=== PATIENT | male | born 1975 | race American Indian/Alaskan Native ===

== ENCOUNTER 2019-12-13 13:58 | Emergency (ER) | payer MEDICAID ==
--- NOTE | 2019-12-13 14:45 | Event Note ---
ED Screening Note Date of service: 12/13/19 Time: 14:38 ED Screening Note: 44 y o male presents with alcohol withdrawal states he usually drinks a bottle or 2 of wine daily states last drink was wednesday or wednesday cc of tremors This initial assessment/diagnostic orders/clinical plan/treatment(s) is/are subject to change based on patients health status, clinical progression and re- assessment by fellow clinical providers in the ED. Further treatment and workup at subsequent clinical providers discretion. Patient/guardian urged not to elope from the ED as their condition may be serious if not clinically assessed and managed. Initial orders include: labs uds main side eval
[2019-12-13 15:42] LABS: BUN/Creatinine Ratio 17; Blood Urea Nitrogen 15 mg/dL (9-20); Hemolysis Index 15
[2019-12-13 15:53] LABS: Hematocrit 51.8 % (35.5-45.6); Hemoglobin 17.4 gm/dl (11.8-15.2); Mean Corpuscular HGB Conc 34 % (32-34); Mean Corpuscular Volume 89 fl (84-94); Platelet Count 244 K/mm3 (140-440); Red Blood Count 5.84 M/mm3 (3.65-5.03); Red Cell Distribution Width 14.5 % (13.2-15.2)
[2019-12-13] MEDS ORDERED: LORazepam 2 MG/ML VIAL IV PRN ×2 (19:04)
[2019-12-13] MEDS ORDERED: chlordiazePOXIDE 25 MG CAP PO PRN ×2 (19:04)
[2019-12-13] MEDS ORDERED: SODIUM CHLORIDE 0.9% 1000 ML 1,000 ML IV ONE (19:05)
[2019-12-13] MEDS ORDERED: THIAMINE 100 MG, FOLIC ACID 1 MG, MULTIPLE VITAMIN INJ, ADULT 10 ML in SODIUM CHLORIDE ... IV ONE (19:30)
[2019-12-13 19:33] LABS: Amphetamine Screen,Urine PRESUMPTIVE NEGATIVE; Benzodiazepines Screen,Urine PRESUMPTIVE NEGATIVE; Cannabinoid Screen,Urine PRESUMPTIVE NEGATIVE; Cocaine Screen,Urine PRESUMPTIVE NEGATIVE; Methadone Screen,Urine PRESUMPTIVE NEGATIVE; Opiate Screen,Urine PRESUMPTIVE NEGATIVE
[2019-12-13 19:38] LABS: Bacteria,Urine 1+ /HPF (Negative); Bilirubin,Urine NEG (Negative); Blood,Urine SM (Negative); Color,Urine Amber (Yellow); Mucus,Urine 3+ /HPF; Urobilinogen,Urine < 2.0 mg/dL (<2.0)
--- NOTE | 2019-12-13 20:49 | Emergency Department Report ---
ED General Adult HPI - General Chief complaint: Alcohol Stated complaint: ETOH WITHDRAW Time Seen by Provider: 12/13/19 18:13 Source: patient Mode of arrival: Ambulatory Limitations: No Limitations - History of Present Illness Initial comments: Patient presents to the emergency department the chief complaint of alcohol withdrawal. Patient states he drinks approximately one and a half bottles of wine daily and has not had a drink since Wednesday. Patient states that he has tried to stop drinking before with success via this cold turkey method. Patient denies any auditory visual hallucinations. Patient also denies blacking out. -: Gradual Severity scale (0 -10): 0 Consistency: constant Improves with: none Worsens with: none Associated Symptoms: denies other symptoms Treatments Prior to Arrival: none - Related Data Previous Rx's Medication Instructions Recorded Last Taken Type Folic Acid 0.4 mg PO QDAY #30 tablet 10/17/18 Unknown Rx Multivitamin [Multiple Vitamins] 1 each PO DAILY #30 tablet 10/17/18 Unknown Rx Thiamine [Vitamin B-1] 100 mg PO QDAY #30 tablet 10/17/18 Unknown Rx LORazepam [Ativan] 1 mg PO TID PRN #12 tablet 12/13/19 Unknown Rx Allergies Allergy/AdvReac Type Severity Reaction Status Date / Time No Known Allergies Allergy Unverified 10/16/18 11:28 ED Review of Systems ROS: Stated complaint: ETOH WITHDRAW Other details as noted in HPI Comment: All other systems reviewed and negative Constitutional: denies: chills, fever Eyes: denies: eye pain, eye discharge, vision change ENT: denies: ear pain, throat pain Respiratory: denies: cough, shortness of breath, wheezing Cardiovascular: denies: chest pain, palpitations Endocrine: no symptoms reported Gastrointestinal: denies: abdominal pain, nausea, diarrhea Genitourinary: denies: urgency, dysuria Musculoskeletal: denies: back pain, joint swelling, arthralgia Skin: denies: rash, lesions Neurological: denies: headache, weakness, paresthesias Psychiatric: denies: anxiety, depression Hematological/Lymphatic: denies: easy bleeding, easy bruising ED Past Medical Hx - Past Medical History Previous Medical History?: Yes Hx Congestive Heart Failure: No Hx Diabetes: No Hx Psychiatric Treatment: Yes (Alcohol abuse) Hx Asthma: No Hx COPD: No - Surgical History Past Surgical History?: No - Social History Smoking Status: Current Every Day Smoker Substance Use Type: Alcohol - Medications Home Medications: Home Medications Medication Instructions Recorded Confirmed Last Taken Type Folic Acid 0.4 mg PO QDAY #30 tablet 10/17/18 Unknown Rx Multivitamin [Multiple Vitamins] 1 each PO DAILY #30 tablet 10/17/18 Unknown Rx Thiamine [Vitamin B-1] 100 mg PO QDAY #30 tablet 10/17/18 Unknown Rx LORazepam [Ativan] 1 mg PO TID PRN #12 tablet 12/13/19 Unknown Rx ED Physical Exam - General Limitations: No Limitations General appearance: alert, in no apparent distress - Head Head exam: Present: atraumatic, normocephalic - Eye Eye exam: Present: normal appearance, PERRL, EOMI - ENT ENT exam: Present: mucous membranes moist - Neck Neck exam: Present: normal inspection - Respiratory Respiratory exam: Present: normal lung sounds bilaterally. Absent: respiratory distress - Cardiovascular Cardiovascular Exam: Present: normal rhythm, tachycardia. Absent: systolic murmur, diastolic murmur, rubs, gallop - GI/Abdominal GI/Abdominal exam: Present: soft, normal bowel sounds. Absent: distended, ten derness - Rectal Rectal exam: Present: deferred - Extremities Exam Extremities exam: Present: normal inspection - Back Exam Back exam: Present: normal inspection - Neurological Exam Neurological exam: Present: alert, oriented X3, CN II-XII intact, other (Tremors). Absent: motor sensory deficit - Psychiatric Psychiatric exam: Present: normal affect, normal mood - Skin Skin exam: Present: warm, dry, intact, normal color. Absent: rash ED Course Vital Signs 12/13/19 12/13/19 12/13/19 14:01 14:47 18:37 Temperature 98.3 F 98.3 F Pulse Rate 66 73 Respiratory 18 18 Rate Blood Pressure 173/100 173/100 Blood Pressure [Right] O2 Sat by Pulse 97 98 97 Oximetry 12/13/19 12/13/19 12/13/19 18:45 19:19 19:20 Temperature Pulse Rate 128 H 128 H Respiratory 17 19 19 Rate Blood Pressure 162/96 Blood Pressure 156/91 [Right] O2 Sat by Pulse 94 96 96 Oximetry 12/13/19 12/13/19 20:13 22:07 Temperature Pulse Rate 119 H 115 H Respiratory 20 20 Rate Blood Pressure Blood Pressure 137/74 137/70 [Right] O2 Sat by Pulse 96 98 Oximetry ED Medical Decision Making - Lab Data Result diagrams: 12/13/19 15:11 12/13/19 15:11 Lab Results 12/13/19 12/13/19 12/13/19 Range/Units 15:11 15:11 15:11 WBC 7.8 (4.5-11.0) K/mm3 RBC 5.84 H (3.65-5.03) M/mm3 Hgb 17.4 H (11.8-15.2) gm/dl Hct 51.8 H (35.5-45.6) % MCV 89 (84-94) fl MCH 30 (28-32) pg MCHC 34 (32-34) % RDW 14.5 (13.2-15.2) % Plt Count 244 (140-440) K/mm3 Lymph % (Auto) 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 [place] % (Auto) [employer] 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 Eos % (Auto) [employer] W[employer] 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 Baso % (Auto) [employer] W[employer] 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 Lymph # [employer] W[employer] 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 [place] # [employer] 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 Eos # Cl[employer] W[employer] 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 Baso # [employer] W[employer] 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 Seg Neutrophils % [employer] W[employer] 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 Seg Neutrophils # Cloth W[employer] 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 Sodium 133 L (137-145) mmol/L Potassium 3.9 (3.6-5.0) mmol/L Chloride 89.2 L (98-107) mmol/L Carbon Dioxide 21 L (22-30) mmol/L Anion Gap 27 mmol/L BUN 15 (9-20) mg/dL Creatinine 0.9 (0.8-1.5) mg/dL Estimated GFR > 60 ml/min BUN/Creatinine Ratio 17 % Glucose 103 H (75-100) mg/dL Calcium 9.0 (8.4-10.2) mg/dL Urine Color (Yellow) Urine Turbidity (Clear) Urine pH (5.0-7.0) Ur Specific [place] (1.003-1.030) Urine Protein (Negative) mg/dL Urine Glucose (UA) (Negative) mg/dL Urine Ketones (Negative) mg/dL Urine Blood (Negative) Urine Nitrite (Negative) Urine Bilirubin (Negative) Urine Urobilinogen (<2.0) mg/dL Ur Leukocyte Esterase (Negative) Urine WBC (Auto) (0.0-6.0) /HPF Urine RBC (Auto) (0.0-6.0) /HPF U Epithel Cells (Auto) (0-13.0) /HPF Urine Bacteria (Auto) (Negative) /HPF Urine Mucus /HPF Urine Opiates Screen Urine Methadone Screen Ur Barbiturates Screen Ur Phencyclidine Scrn Ur Amphetamines Screen U Benzodiazepines Scrn Urine Cocaine Screen U Marijuana (THC) Screen Drugs of Abuse Note Plasma/Serum Alcohol < 0.01 (0-0.07) % 12/13/19 12/13/19 Range/Units 19:00 19:00 WBC (4.5-11.0) K/mm3 RBC (3.65-5.03) M/mm3 Hgb (11.8-15.2) gm/dl Hct (35.5-45.6) % MCV (84-94) fl MCH (28-32) pg MCHC (32-34) % RDW (13.2-15.2) % Plt Count (140-440) K/mm3 Lymph % (Auto) [place] % (Auto) Eos % (Auto) Baso % (Auto) Lymph # [place] # Eos # Baso # Seg Neutrophils % Seg Neutrophils # Sodium (137-145) mmol/L Potassium (3.6-5.0) mmol/L Chloride (98-107) mmol/L Carbon Dioxide (22-30) mmol/L Anion Gap mmol/L BUN (9-20) mg/dL Creatinine (0.8-1.5) mg/dL Estimated GFR ml/min BUN/Creatinine Ratio % Glucose (75-100) mg/dL Calcium (8.4-10.2) mg/dL Urine Color [place] (Yellow) Urine Turbidity Clear (Clear) Urine pH 5.0 (5.0-7.0) Ur Specific [place] 1.030 (1.003-1.030) Urine Protein 30 mg/dl (Negative) mg/dL Urine Glucose (UA) Neg (Negative) mg/dL Urine Ketones 20 (Negative) mg/dL Urine Blood Sm (Negative) Urine Nitrite Neg (Negative) Urine Bilirubin Neg (Negative) Urine Urobilinogen < 2.0 (<2.0) mg/dL Ur Leukocyte Esterase Neg (Negative) Urine WBC (Auto) 2.0 (0.0-6.0) /HPF Urine RBC (Auto) 4.0 (0.0-6.0) /HPF U Epithel Cells (Auto) < 1.0 (0-13.0) /HPF Urine Bacteria (Auto) 1+ (Negative) /HPF Urine Mucus 3+ /HPF Urine Opiates Screen Presumptive negative Urine Methadone Screen Presumptive negative Ur Barbiturates Screen Presumptive negative Ur Phencyclidine Scrn Presumptive negative Ur Amphetamines Screen Presumptive negative U Benzodiazepines Scrn Presumptive negative Urine Cocaine Screen Presumptive negative U Marijuana (THC) Screen Presumptive negative Drugs of Abuse Note Disclamer Plasma/Serum Alcohol (0-0.07) % - Medical Decision Making The patient's initial CIWA was 13 Reexamination of the patient at 10:15 PM CIWA score was a 4 Discussed in detail with the patient that he should stay for further treatment evaluation for alcohol withdrawal and the patient states he is concerned about losing his job and politely declines being admitted. I did go over the risk factors with the patient which included certainly for the lack of inhibition of the NARA receptors but the patient states that he still would like to go home. Further discussion was done about the risk factors leaving AGAINST MEDICAL ADVICE which includes worsening of his illness, , lifelong injuries or illness. Patient states that he understands all this but still wants to go home. Critical care attestation.: If time is entered above; I have spent that time in minutes in the direct care of this critically ill patient, excluding procedure time. ED Disposition Clinical Impression: Alcohol withdrawal Disposition: DC-07 LEFT AGAINST MED ADVICE Is pt being admited?: No Does the pt Need Aspirin: No Condition: Stable Instructions: Abuse of Alcohol (ED) Additional Instructions: return if worse Prescriptions: LORazepam [Ativan] 1 mg PO TID PRN #12 tablet PRN Reason: Alcohol Withdrawal Referrals: MONICA GUERRERO MD [Primary Care Provider] - 3-5 Days Time of Disposition: 22:28
[2019-12-13 22:08] VITALS: BP 137/70
== END 2019-12-13 22:39 | disposition left against medical advice (07) ==
LOC: ED 13:58
DX: F10.239 Alcohol dependence with withdrawal, unspecified (principal); F17.200 Nicotine dependence, unspecified, uncomplicated; Z79.899 Other long term (current) drug therapy
CPT/HCPCS: 36415; 80048; 80307; 81001; 85025; 96365; 96366; 99284; J3411; J7030; 80320; G0480

== ENCOUNTER 2020-04-20 10:07 | Emergency (ER) | payer MEDICAID ==
[2020-04-20 10:50] LABS: Basophils # (Auto) 0.1 K/mm3 (0.0-0.1); Eosinophils % (Auto) 0.3 % (0.0-4.3); Hematocrit 55.6 % (35.5-45.6); Hemoglobin 18.9 gm/dl (11.8-15.2); Lymphocytes % (Auto) 18.5 % (13.4-35.0); Mean Corpuscular HGB Conc 34 % (32-34); Mean Corpuscular Volume 86 fl (84-94); Monocytes # (Auto) 0.5 K/mm3 (0.0-0.8); Monocytes % (Auto) 8.5 % (0.0-7.3); Platelet Count 398 K/mm3 (140-440); Red Blood Count 6.47 M/mm3 (3.65-5.03); Red Cell Distribution Width 14.5 % (13.2-15.2)
[2020-04-20 11:07] LABS: BUN/Creatinine Ratio 20; Blood Urea Nitrogen 16 mg/dL (9-20); Calcium 7.9 mg/dL (8.4-10.2); Hemolysis Index 25
[2020-04-20 12:03] LABS: Bilirubin,Urine NEG (Negative); Blood,Urine NEG (Negative); Color,Urine Yellow (Yellow); Mucus,Urine FEW /HPF; Protein,Urine <15 mg/dL mg/dL (Negative); WBC,Urine < 1.0 /HPF (0.0-6.0)
[2020-04-20 12:15] LABS: Amphetamine Screen,Urine Negative; Benzodiazepines Screen,Urine Negative; Cannabinoid Screen,Urine Negative; Cocaine Screen,Urine Negative; Methadone Screen,Urine Negative; Opiate Screen,Urine Negative
[2020-04-20] MEDS ORDERED: LORazepam 1 MG TAB PO ONE (13:16)
--- NOTE | 2020-04-20 13:19 | Emergency Department Report ---
ED General Adult HPI - General Chief complaint: Medical Clearance Stated complaint: MEDICAL CLERARNCE/ETOH PUI?: No Time Seen by Provider: 04/20/20 13:13 Source: patient Mode of arrival: Ambulatory Limitations: No Limitations - History of Present Illness Initial comments: Patient is a 44-year-old F Brazilian male with past medical history of heavy alcohol abuse who is presenting with need for medical clearance so he can go to [facility] for alcohol detox. Patient states he drinks daily and is having issues with his life secondary to alcohol. He denies having any history of alcohol withdrawal seizures but does states he feels somewhat shaky. He denies any hallucinations at this time. Patient's last drink was yesterday. He states he has no nausea vomiting but just feels anxious. - Related Data Previous Rx's Medication Instructions Recorded Last Taken Type Folic Acid 0.4 mg PO QDAY #30 tablet 10/17/18 Unknown Rx Multivitamin [Multiple Vitamins] 1 each PO DAILY #30 tablet 10/17/18 Unknown Rx Thiamine [Vitamin B-1] 100 mg PO QDAY #30 tablet 10/17/18 Unknown Rx LORazepam [Ativan] 1 mg PO TID PRN #12 tablet 12/13/19 Unknown Rx Allergies Allergy/AdvReac Type Severity Reaction Status Date / Time No Known Allergies Allergy Unverified 10/16/18 11:28 ED Review of Systems ROS: Stated complaint: MEDICAL CLERARNCE/ETOH Other details as noted in HPI Comment: All other systems reviewed and negative ED Past Medical Hx - Past Medical History Previous Medical History?: Yes Hx Congestive Heart Failure: No Hx Diabetes: No Hx Psychiatric Treatment: Yes (Alcohol abuse) Hx Asthma: No Hx COPD: No - Social History Smoking Status: Never Smoker Substance Use Type: Alcohol - Medications Home Medications: Home Medications Medication Instructions Recorded Confirmed Last Taken Type Folic Acid 0.4 mg PO QDAY #30 tablet 10/17/18 Unknown Rx Multivitamin [Multiple Vitamins] 1 each PO DAILY #30 tablet 10/17/18 Unknown Rx Thiamine [Vitamin B-1] 100 mg PO QDAY #30 tablet 10/17/18 Unknown Rx LORazepam [Ativan] 1 mg PO TID PRN #12 tablet 12/13/19 Unknown Rx ED Physical Exam - General Limitations: No Limitations General appearance: alert, in no apparent distress - Head Head exam: Present: atraumatic, normocephalic - Eye Eye exam: Present: normal appearance - ENT ENT exam: Present: mucous membranes moist - Neck Neck exam: Present: normal inspection - Respiratory Respiratory exam: Present: normal lung sounds bilaterally. Absent: respiratory distress, wheezes, rales, rhonchi - Cardiovascular Cardiovascular Exam: Present: normal rhythm, tachycardia (112 on exam), normal heart sounds. Absent: systolic murmur, diastolic murmur, rubs, gallop - GI/Abdominal GI/Abdominal exam: Present: soft, normal bowel sounds. Absent: distended, tenderness, guarding, rebound - Rectal Rectal exam: Present: deferred - Extremities Exam Extremities exam: Present: normal inspection - Back Exam Back exam: Present: normal inspection - Neurological Exam Neurological exam: Present: alert, oriented X3 - Psychiatric Psychiatric exam: Present: normal affect, normal mood - Skin Skin exam: Present: warm, dry, intact, normal color. Absent: rash ED Course Vital Signs 04/20/20 10:15 Temperature 97.5 F L Pulse Rate 132 H Respiratory 20 Rate Blood Pressure 154/104 O2 Sat by Pulse 95 Oximetry ED Medical Decision Making - Lab Data Result diagrams: 04/20/20 10:26 04/20/20 10:26 Lab Results 04/20/20 04/20/20 04/20/20 Range/Units 10:26 10:26 10:26 WBC (4.5-11.0) K/mm3 RBC (3.65-5.03) M/mm3 Hgb (11.8-15.2) gm/dl Hct (35.5-45.6) % MCV (84-94) fl MCH (28-32) pg MCHC (32-34) % RDW (13.2-15.2) % Plt Count (140-440) K/mm3 Lymph % (Auto) (13.4-35.0) % [place] % (Auto) (0.0-7.3) % Eos % (Auto) (0.0-4.3) % Baso % (Auto) (0.0-1.8) % Lymph # (1.2-5.4) K/mm3 [place] # (0.0-0.8) K/mm3 Eos # (0.0-0.4) K/mm3 Baso # (0.0-0.1) K/mm3 Seg Neutrophils % (40.0-70.0) % Seg Neutrophils # (1.8-7.7) K/mm3 Sodium 135 L (137-145) mmol/L Potassium 3.8 (3.6-5.0) mmol/L Chloride 92.0 L (98-107) mmol/L Carbon Dioxide 22 (22-30) mmol/L Anion Gap 25 mmol/L BUN 16 (9-20) mg/dL Creatinine 0.8 (0.8-1.5) mg/dL Estimated GFR > 60 ml/min BUN/Creatinine Ratio 20 % Glucose 112 H (75-100) mg/dL Calcium 7.9 L (8.4-10.2) mg/dL Urine Color (Yellow) Urine Turbidity (Clear) Urine pH (5.0-7.0) Ur Specific [place] (1.003-1.030) Urine Protein (Negative) mg/dL Urine Glucose (UA) (Negative) mg/dL Urine Ketones (Negative) mg/dL Urine Blood (Negative) Urine Nitrite (Negative) Urine Bilirubin (Negative) Urine Urobilinogen (<2.0) mg/dL Ur Leukocyte Esterase (Negative) Urine WBC (Auto) (0.0-6.0) /HPF Urine RBC (Auto) (0.0-6.0) /HPF Urine Mucus /HPF Salicylates 1.1 L (2.8-20.0) mg/dL Urine Opiates Screen Urine Methadone Screen Acetaminophen < 5.0 L (10.0-30.0) ug/mL Ur Barbiturates Screen Ur Phencyclidine Scrn Ur Amphetamines Screen U Benzodiazepines Scrn Urine Cocaine Screen U Marijuana (THC) Screen Drugs of Abuse Note Plasma/Serum Alcohol (0-0.07) % 04/20/20 04/20/20 04/20/20 Range/Units 10:26 10:26 Unknown WBC 5.6 (4.5-11.0) K/mm3 RBC 6.47 H (3.65-5.03) M/mm3 Hgb 18.9 H (11.8-15.2) gm/dl Hct 55.6 H (35.5-45.6) % MCV 86 (84-94) fl MCH 29 (28-32) pg MCHC 34 (32-34) % RDW 14.5 (13.2-15.2) % Plt Count 398 (140-440) K/mm3 Lymph % (Auto) 18.5 (13.4-35.0) % [place] % (Auto) 8.5 H (0.0-7.3) % Eos % (Auto) 0.3 (0.0-4.3) % Baso % (Auto) 1.0 (0.0-1.8) % Lymph # 1.0 L (1.2-5.4) K/mm3 [place] # 0.5 (0.0-0.8) K/mm3 Eos # 0.0 (0.0-0.4) K/mm3 Baso # 0.1 (0.0-0.1) K/mm3 Seg Neutrophils % 71.7 H (40.0-70.0) % Seg Neutrophils # 4.0 (1.8-7.7) K/mm3 Sodium (137-145) mmol/L Potassium (3.6-5.0) mmol/L Chloride (98-107) mmol/L Carbon Dioxide (22-30) mmol/L Anion Gap mmol/L BUN (9-20) mg/dL Creatinine (0.8-1.5) mg/dL Estimated GFR ml/min BUN/Creatinine Ratio % Glucose (75-100) mg/dL Calcium (8.4-10.2) mg/dL Urine Color Yellow (Yellow) Urine Turbidity Clear (Clear) Urine pH 6.0 (5.0-7.0) Ur Specific [place] 1.021 (1.003-1.030) Urine Protein <15 mg/dl (Negative) mg/dL Urine Glucose (UA) Neg (Negative) mg/dL Urine Ketones Neg (Negative) mg/dL Urine Blood Neg (Negative) Urine Nitrite Neg (Negative) Urine Bilirubin Neg (Negative) Urine Urobilinogen 4.0 (<2.0) mg/dL Ur Leukocyte Esterase Neg (Negative) Urine WBC (Auto) < 1.0 (0.0-6.0) /HPF Urine RBC (Auto) 2.0 (0.0-6.0) /HPF Urine Mucus Few /HPF Salicylates (2.8-20.0) mg/dL Urine Opiates Screen Urine Methadone Screen Acetaminophen (10.0-30.0) ug/mL Ur Barbiturates Screen Ur Phencyclidine Scrn Ur Amphetamines Screen U Benzodiazepines Scrn Urine Cocaine Screen U Marijuana (THC) Screen Drugs of Abuse Note Plasma/Serum Alcohol 0.15 H (0-0.07) % 04/20/20 Range/Units Unknown WBC (4.5-11.0) K/mm3 RBC (3.65-5.03) M/mm3 Hgb (11.8-15.2) gm/dl Hct (35.5-45.6) % MCV (84-94) fl MCH (28-32) pg MCHC (32-34) % RDW (13.2-15.2) % Plt Count (140-440) K/mm3 Lymph % (Auto) (13.4-35.0) % [place] % (Auto) (0.0-7.3) % Eos % (Auto) (0.0-4.3) % Baso % (Auto) (0.0-1.8) % Lymph # (1.2-5.4) K/mm3 [place] # (0.0-0.8) K/mm3 Eos # (0.0-0.4) K/mm3 Baso # (0.0-0.1) K/mm3 Seg Neutrophils % (40.0-70.0) % Seg Neutrophils # (1.8-7.7) K/mm3 Sodium (137-145) mmol/L Potassium (3.6-5.0) mmol/L Chloride (98-107) mmol/L Carbon Dioxide (22-30) mmol/L Anion Gap mmol/L BUN (9-20) mg/dL Creatinine (0.8-1.5) mg/dL Estimated GFR ml/min BUN/Creatinine Ratio % Glucose (75-100) mg/dL Calcium (8.4-10.2) mg/dL Urine Color (Yellow) Urine Turbidity (Clear) Urine pH (5.0-7.0) Ur Specific [place] (1.003-1.030) Urine Protein (Negative) mg/dL Urine Glucose (UA) (Negative) mg/dL Urine Ketones (Negative) mg/dL Urine Blood (Negative) Urine Nitrite (Negative) Urine Bilirubin (Negative) Urine Urobilinogen (<2.0) mg/dL Ur Leukocyte Esterase (Negative) Urine WBC (Auto) (0.0-6.0) /HPF Urine RBC (Auto) (0.0-6.0) /HPF Urine Mucus /HPF Salicylates (2.8-20.0) mg/dL Urine Opiates Screen Negative Urine Methadone Screen Negative Acetaminophen (10.0-30.0) ug/mL Ur Barbiturates Screen Negative Ur Phencyclidine Scrn Negative Ur Amphetamines Screen Negative U Benzodiazepines Scrn Negative Urine Cocaine Screen Negative U Marijuana (THC) Screen Negative Drugs of Abuse Note Disclamer Plasma/Serum Alcohol (0-0.07) % - Medical Decision Making Patient is medically cleared for alcohol detox at this time. Critical care attestation.: If time is entered above; I have spent that time in minutes in the direct care of this critically ill patient, excluding procedure time. ED Disposition Clinical Impression: Alcohol abuse, Medical clearance for psychiatric admission Disposition: DC/TX-65 PSY HOSP/PSY UNIT Is pt being admited?: No Does the pt Need Aspirin: No Condition: Stable Additional Instructions: patient is medically cleared Time of Disposition: 13:19
[2020-04-20 14:07] VITALS: BP 130/89
== END 2020-04-20 15:00 ==
LOC: ED 10:07
DX: F10.10 Alcohol abuse, uncomplicated (principal); Z04.6 Encounter for general psychiatric examination, requested by authority; Z79.899 Other long term (current) drug therapy
CPT/HCPCS: 36415; 80048; 80307; 80320; 81001; 85025; 99283; G0480

== ENCOUNTER 2022-02-22 16:38 | Inpatient (IN) | payer MEDICAID, OTHER ==
[2022-02-22] MEDS ORDERED: ASPIRIN 81 MG TAB CHEW ONE (17:10)
[2022-02-22] MEDS ORDERED: HEPARIN 5,000 UNIT/1 ML VIAL ONE (17:10)
[2022-02-22] MEDS ORDERED: ACETAMINOPHEN 325 MG TAB PO PRN (17:11)
[2022-02-22] MEDS ORDERED: ALBUTEROL 2.5 MG/3 ML NEBU IH PRN (17:11)
[2022-02-22] MEDS ORDERED: MORPHINE 4 MG/1 ML INJ IV PRN (17:11)
--- NOTE | 2022-02-22 17:14 | History and Physical Report ---
History of Present Illness Chief complaint: My chest hurts History of present illness: 46 YO Male with Obesity, ETOH Dependence, GERD, ONESIMO presents to ED for evaluation. Patient reports "I am having chest pain". Patient states that he has experienced chest pain episodes over the past 1 week with persistent and worsening symptoms over the past 1 day. Patient states that his pain is currently 8/10, constant, substernal, sharp in nature, worsened with exertion, relieved with rest, associated with diaphoresis, associated with nausea. Patient transported to [facility] via private vehicle for further care and evaluation of the aforementioned symptoms. The patient was seen and evaluated in the emergency department. All lab and imaging studies reviewed. EKG and lab findings consistent with ST elevation [place]. Patient treated with therapeutic anticoagulation and taken urgently to the Permastone Applicator for surgical intervention. Cardiology team consulted in ED. Patient denies fever, chills, palpitation, productive cough, skin rash, recent contact, unilateral leg swelling, calf pain, individual/family history of DVT/PE/bleeding/blood clotting disorders, or known exposure to COVID-19. Prior ad Past History Past Medical History: GERD, other (See HPI) Past Surgical History: No surgical history, Other (Reviewed) Social history: , lives with family Family history: diabetes, hypertension Medications and Allergies Allergies Allergy/AdvReac Type Severity Reaction Status Date / Time No Known Allergies Allergy Verified 02/22/22 16:49 Home Medications Medication Instructions Recorded Confirmed Last Taken Type Folic Acid 0.4 mg PO QDAY #30 tablet 10/17/18 Unknown Rx Multivitamin [Multiple Vitamins] 1 each PO DAILY #30 tablet 10/17/18 Unknown Rx Thiamine [Vitamin B-1] 100 mg PO QDAY #30 tablet 10/17/18 Unknown Rx LORazepam [Ativan] 1 mg PO TID PRN #12 tablet 12/13/19 Unknown Rx Review of Systems Constitutional: no weight loss, no weight gain, no fever, no chills Ears, nose, mouth and throat: no ear pain, no tinnitis, no nasal congestion, no nasal discharge Cardiovascular: chest pain, shortness of breath Respiratory: no cough, no excessive sputum, no hemoptysis, no shortness of breath Gastrointestinal: nausea, no abdominal pain, no vomiting, no constipation, no change in bowel habits Genitourinary Male: no hematuria, no flank pain, no discharge, no urinary frequency, no urinary hesitancy Rectal: no pain, no incontinence, no bleeding Musculoskeletal: no neck stiffness, no neck pain, no shooting arm pain, no arm numbness/tingling Integumentary: no rash, no pruritis, no redness, no sores Neurological: no head injury, no transient paralysis, no paralysis, no weakness, no numbness, no syncope Psychiatric: anxiety, no memory loss, no sleep disturbances, no hypersomnia, no change in appetite, no change in libido Endocrine: no cold intolerance, no polyphagia, no excessive thirst, no polyuria, no excessive sweating Hematologic/Lymphatic: no easy bruising, no easy bleeding, no lymphedema Allergic/Immunologic: no urticaria, no allergic rhinitis, no persistent infections Exam - Constitutional Vitals: Temp Pulse Resp BP Pulse Ox 98.9 F 88 18 155/95 98 02/22/22 16:44 02/22/22 16:44 02/22/22 16:44 02/22/22 16:44 02/22/22 16:44 General appearance: Present: mild distress, obese - EENT Eyes: Present: PERRL ENT: hearing intact, clear oral mucosa - Neck Neck: Present: supple, normal ROM - Respiratory Respiratory effort: normal Respiratory: bilateral: CTA - Cardiovascular Heart Sounds: Present: S1 & S2. Absent: rub, click - Extremities Extremities: pulses symmetrical, No edema Peripheral Pulses: within normal limits - Abdominal General gastrointestinal: Present: soft, non-tender, non-distended, normal bowel sounds Male genitourinary: Present: normal - Integumentary Integumentary: Present: clear, warm, dry - Musculoskeletal Musculoskeletal: gait normal, strength equal bilaterally - Psychiatric Psychiatric: appropriate mood/affect, intact judgment & insight - Neurologic Neurologic: CNII-XII intact, moves all extremities Assessment and Plan - Patient Problems (1) STEMI (ST elevation myocardial infarction) Current Visit: Yes Status: Acute Plan to address problem: ACS protocol: Serial cardiac enzymes, EKG, telemetry monitoring, therapeutic anticoagulation administered in the emergency department. Patient taken urgently to Permastone Applicator, morphine, supplemental oxygen, nitro, aspirin, supportive care. The high probability of a clinically significant, sudden or life threatening deterioration of the [cardiac, pulmonary, neuro,] system(s) required my full and direct attention, intervention and personal management. The aggregate critical care time was [65] minutes. This time is in addition to time spent performing reported procedures but includes the following: [x] Data Review and interpretation [x] Patient assessment and monitoring of vital signs [x] Documentation [x] Medication orders and management (2) Obesity hypoventilation syndrome Current Visit: Yes Status: Acute Plan to address problem: Balanced diet, increase physical activity at discharge, outpatient pulmonary follow-up for sleep study. (3) Alcohol dependence Current Visit: Yes Status: Acute Qualifiers: Substance use status: uncomplicated Qualified Code(s): F10.20 - Alcohol dependence, uncomplicated Plan to address problem: Thiamine, folic acid, multivitamin daily, [place] protocol. (4) Diastolic CHF Current Visit: Yes Status: Acute Qualifiers: Heart failure chronicity: acute Qualified Code(s): I50.31 - Acute diastolic (congestive) heart failure Plan to address problem: Strict I's/O, monitor urine output every shift, daily weight, afterload reduction, blood pressure control, monitor fluid balance, further care and evaluation as per cardiology team. (5) DVT prophylaxis Current Visit: Yes Status: Acute Plan to address problem: SCD to bilateral lower extremities while in bed, continue therapeutic anticoagulation. (6) Advance care planning Current Visit: Yes Status: Acute Plan to address problem: Disease education data, care plan discussed, diagnoses discussed, prognosis discussed, patient is full code. Patient knowledges understanding and agreement with care plan, +30 minutes. (7) Preventative health care Current Visit: Yes Status: Acute Plan to address problem: Patient counseled regarding balanced diet, increase physical activity at discharge, weight reduction, outpatient follow-up with primary care physician for both age and risk factor appropriate screening test. +15 minutes.
[2022-02-22] MEDS ORDERED: SODIUM CHLORIDE 0.9% 1000 ML 1,000 ML ONE (17:15)
[2022-02-22] MEDS ORDERED: ONDANSETRON 4 MG/2 ML INJ ONE (17:15)
[2022-02-22] MEDS ORDERED: HEPARIN 10,000 UNITS/10 ML VIAL IV PRN (17:27)
[2022-02-22] MEDS ORDERED: ONDANSETRON 4 MG/2 ML INJ IV ONE (17:27)
[2022-02-22] MEDS ORDERED: ASPIRIN 81 MG TAB CHEW PO ONE (17:27)
[2022-02-22] MEDS ORDERED: MORPHINE 4 MG/1 ML INJ IV ONE (17:28)
--- NOTE | 2022-02-22 17:33 | Emergency Department Report ---
ED General Adult HPI - General Chief complaint: Chest Pain Stated complaint: CHEST PAIN Time Seen by Provider: 02/22/22 17:26 Source: patient Mode of arrival: Ambulatory Limitations: No Limitations - History of Present Illness Initial comments: Pt reports intermittent chest pain x1 wk with worsening yesterday. pt describes pain as substernal sharp pain. Pt reports he gets diaphoretic during his episodes with mild nausea. Pt denies prior cardiac hx. 46 years old recovering alcoholic with chest pain for a week , got worse since last night centralk going to his right arm, diaphoresis and nausea Severity scale (0 -10): 8 - Related Data Previous Rx's Medication Instructions Recorded Last Taken Type Folic Acid 0.4 mg PO QDAY #30 tablet 10/17/18 Unknown Rx Multivitamin [Multiple Vitamins] 1 each PO DAILY #30 tablet 10/17/18 Unknown Rx Thiamine [Vitamin B-1] 100 mg PO QDAY #30 tablet 10/17/18 Unknown Rx LORazepam [Ativan] 1 mg PO TID PRN #12 tablet 12/13/19 Unknown Rx Allergies Allergy/AdvReac Type Severity Reaction Status Date / Time No Known Allergies Allergy Verified 02/22/22 16:49 ED Review of Systems ROS: Stated complaint: CHEST PAIN Other details as noted in HPI Constitutional: denies: chills, fever Eyes: denies: eye pain, eye discharge, vision change ENT: denies: ear pain, throat pain Respiratory: denies: cough, shortness of breath, wheezing Cardiovascular: denies: chest pain, palpitations Endocrine: no symptoms reported Gastrointestinal: denies: abdominal pain, nausea, diarrhea Genitourinary: denies: urgency, dysuria Musculoskeletal: denies: back pain, joint swelling, arthralgia Skin: denies: rash, lesions Neurological: denies: headache, weakness, paresthesias Psychiatric: denies: anxiety, depression Hematological/Lymphatic: denies: easy bleeding, easy bruising ED Past Medical Hx - Past Medical History Hx Congestive Heart Failure: No Hx Diabetes: No Hx Psychiatric Treatment: Yes (Alcohol abuse) Hx Asthma: No Hx COPD: No - Surgical History Past Surgical History?: No - Social History Smoking Status: Never Smoker Substance Use Type: None - Medications Home Medications: Home Medications Medication Instructions Recorded Confirmed Last Taken Type Folic Acid 0.4 mg PO QDAY #30 tablet 10/17/18 Unknown Rx Multivitamin [Multiple Vitamins] 1 each PO DAILY #30 tablet 10/17/18 Unknown Rx Thiamine [Vitamin B-1] 100 mg PO QDAY #30 tablet 10/17/18 Unknown Rx LORazepam [Ativan] 1 mg PO TID PRN #12 tablet 12/13/19 Unknown Rx ED Physical Exam - General Limitations: No Limitations General appearance: alert, in distress - Head Head exam: Present: atraumatic, normocephalic - Eye Eye exam: Present: normal appearance - ENT ENT exam: Present: mucous membranes moist - Neck Neck exam: Present: normal inspection - Respiratory Respiratory exam: Present: normal lung sounds bilaterally. Absent: respiratory distress - Cardiovascular Cardiovascular Exam: Present: regular rate, normal rhythm. Absent: systolic murmur, diastolic murmur, rubs, gallop - GI/Abdominal GI/Abdominal exam: Present: soft, normal bowel sounds - Rectal Rectal exam: Present: deferred - Extremities Exam Extremities exam: Present: normal inspection - Back Exam Back exam: Present: normal inspection - Neurological Exam Neurological exam: Present: alert, oriented X3 - Psychiatric Psychiatric exam: Present: normal affect, normal mood - Skin Skin exam: Present: warm, dry, intact, normal color. Absent: rash ED Course Vital Signs 02/22/22 16:44 Temperature 98.9 F Pulse Rate 88 Respiratory 18 Rate Blood Pressure 155/95 [Right] O2 Sat by Pulse 98 Oximetry ED Medical Decision Making - EKG Data -: EKG Interpreted by Me EKG shows normal: sinus rhythm - EKG Data Interpretation: acute [place] - Radiology Data Radiology results: report reviewed, image reviewed - Medical Decision Making spoke with dr Heath, stemi called at 1707 , as[prin nitro and stemi protocl started Critical Care Time: Yes Critical care time in (mins) excluding proc time.: 65 Critical care attestation.: If time is entered above; I have spent that time in minutes in the direct care of this critically ill patient, excluding procedure time. Critical Care Time: 65 ED Disposition Clinical Impression: STEMI (ST elevation myocardial infarction) Disposition: ADMITTED INPATIENT Is pt being admited?: Yes Does the pt Need Aspirin: Yes Condition: Critical
[2022-02-22] MEDS ORDERED: HEPARIN/NS 5000 UNIT/500ML 1,000 ML IR ONE (17:41)
[2022-02-22] MEDS ORDERED: NITROGLYCERIN SYRINGE 3 ML ONE ×2 (17:41→18:19)
[2022-02-22] MEDS ORDERED: LIDOCAINE (2%) 20 MG/1 ML VIAL 50 ML MDV INFILTRATI ONE (17:41)
[2022-02-22] MEDS ORDERED: VERAPAMIL 5 MG/2 ML INJ ONE (17:41)
[2022-02-22] MEDS ORDERED: MIDAZOLAM 2 MG/2 ML INJ ONE (17:41)
[2022-02-22] MEDS ORDERED: fentaNYL 100 MCG/2 ML INJ ONE (17:41)
[2022-02-22] MEDS ORDERED: ASPIRIN 325 MG TAB PO ONE (17:46)
[2022-02-22] MEDS ORDERED: HEPARIN 10,000 UNITS/10 ML VIAL IV ONE (17:49)
[2022-02-22] MEDS: HEPARIN 10,000 UNITS/10 ML VIAL ONE ×2 (18:00→18:51)
[2022-02-22] MEDS ORDERED: TIROFIBAN/NS 12,500 MCG/250 ML BAG IV SCH (18:00)
[2022-02-22] MEDS ORDERED: TIROFIBAN/NS 12,500 MCG/250 ML BAG IV ONE (18:06)
[2022-02-22] MEDS ORDERED: HEPARIN/NS 5000 UNIT/500ML 500 ML IR ONE (18:16)
[2022-02-22] MEDS ORDERED: ADENOSINE 6 MG/2 ML INJ ONE (18:20)
[2022-02-22] MEDS ORDERED: SODIUM CHLORIDE 0.9% 500 ML 500 ML ONE (18:20)
[2022-02-22] MEDS ORDERED: TICAGRELOR 90 MG TAB ONE (18:33)
[2022-02-22 18:43] LABS: INR 0.97 (0.87-1.13)
[2022-02-22 18:44] LABS: Partial Thromboplastin Time 37.2 Sec. (24.2-36.6)
[2022-02-22 18:47] LABS: Creatine Kinase MB 4.2 ng/mL (0.0-4.0)
[2022-02-22] MEDS ORDERED: CLOPIDOGREL 300 MG TAB PO ONE (18:48)
[2022-02-22] MEDS ORDERED: HEPARIN 10,000 UNITS/10 ML VIAL ONE ×2 (18:50)
[2022-02-22] MEDS ORDERED: LORazepam 2 MG/ML VIAL IV PRN (18:52)
--- NOTE | 2022-02-22 19:13 | Consultation ---
History of Present Illness Consult date: 02/22/22 Requesting physician: TUNDE DYSON Consult reason: chest pain History of present illness: 46-year-old recovering alcoholic, in a program sober for 3 years. Non smoker, denies hypertension diabetes cholesterol. Having chest discomfort midsternal nonradiating for a week on and off. It was all day yesterday. This morning he was chest pain was better. But came back came to the ER which showed anterior lateral NJ patient was brought back to the cardiac Diesel Locomotive Engineer. Patient's mild nausea mild shortness of breath no vomiting no syncope no palpitations no fever no chills. Cardiac cath revealed left main patent LAD proximal 99% diagonal 1 patent and distal LAD at the apex 100% circumflex patent OM1 OM 2 patent RCA patent borderline normal LV function with elevated left end-diastolic pressure has successful PCI of the proximal to mid LAD across diagonal 1 with a drug- eluting resolute 3.5 x 26 mm postdilated with a 4.0. Used intracoronary nitro intracoronary adenosine thrombectomy device with a CAT Rx and unable to resolve the distal apical LAD patient is chest pain is down to 2 out of 10. And patient was placed on Aggrastat. Patient was loaded with Brilinta. Past History Past Medical History: GERD, other (See HPI) Past Surgical History: No surgical history, Other (Reviewed) Social history: , lives with family Family history: diabetes, hypertension Medications and Allergies Allergies Allergy/AdvReac Type Severity Reaction Status Date / Time No Known Allergies Allergy Verified 02/22/22 16:49 Home Medications Medication Instructions Recorded Confirmed Last Taken Type Folic Acid 0.4 mg PO QDAY #30 tablet 10/17/18 Unknown Rx Multivitamin [Multiple Vitamins] 1 each PO DAILY #30 tablet 10/17/18 Unknown Rx Thiamine [Vitamin B-1] 100 mg PO QDAY #30 tablet 10/17/18 Unknown Rx LORazepam [Ativan] 1 mg PO TID PRN #12 tablet 12/13/19 Unknown Rx Active Meds: Active Medications Acetaminophen (Acetaminophen 325 Mg Tab) 650 mg PO Q6H PRN PRN Reason: Pain MILD(1-3)/Fever >100.5/DOLL Albuterol (Albuterol 2.5 Mg/3 Ml Nebu) 2.5 mg IH Q3HRT PRN PRN Reason: Shortness Of Breath Aspirin (Aspirin Ec 325 Mg Tab) 81 mg PO QDAY JAMAL Atorvastatin Calcium (Atorvastatin 40 Mg Tab) 80 mg PO QHS JMAAL Folic Acid (Folic Acid 1 Mg Tab) 1 mg PO QDAY JAMAL Sodium Chloride (Nacl 0.9% 1000 Ml) 1,000 mls @ 75 mls/hr IV DIRECT JAMAL Stop: 02/23/22 03:14 Tirofiban/Sodium Chloride (Aggrastat Drip (12.5 Mg/250 Ml)) 12,500 mcg in 250 mls @ 0 mls/hr IV DIRECT JAMAL; Protocol Stop: 02/23/22 13:59 Lorazepam (Lorazepam 2 Mg/Ml Vial) 2 mg IV Q1HR PRN PRN Reason: CIWA-Ar 8-15 Metoprolol Tartrate (Metoprolol Tartrate 50 Mg Tab) 50 mg PO BID [facility] Morphine Sulfate (Morphine 4 Mg/1 Ml Inj) 1 mg IV Q6H PRN PRN Reason: Pain , Severe (7-10) Multivitamins (Multivitamins ,Therapeutic Tab) 1 each PO QDAY [facility] Oxycodone/Acetaminophen (Oxycodone /Acetaminophen 5-325mg Tab) 1 tab PO Q6H PRN PRN Reason: Pain, Moderate (4-6) Sodium Chloride (Sodium Chloride 0.9% 10 Ml Flush Syringe) 10 ml IV BID [facility] Sodium Chloride (Sodium Chloride 0.9% 10 Ml Flush Syringe) 10 ml IV PRN PRN PRN Reason: LINE FLUSH Thiamine HCl (Thiamine 100 Mg Tab) 100 mg PO QDAY [facility] Ticagrelor (Ticagrelor 90 Mg Tab) 90 mg PO BID [facility] Review of Systems All systems: negative (as per hpi) Physical Examination Vital Signs Temp Pulse Resp BP Pulse Ox 98.9 F 88 18 155/95 98 02/22/22 16:44 02/22/22 16:44 02/22/22 16:44 02/22/22 16:44 02/22/22 16:44 General appearance: no acute distress, well-nourished HEENT: Positive: PERRL, Mucus Membranes Moist Neck: Positive: neck supple, trachea midline Cardiac: Positive: Reg Rate and Rhythm, S1/S2, S4, Audible Murmur Lungs: Positive: clear to auscultation, Normal Breath Sounds Neuro: Positive: Grossly Intact Abdomen: Positive: Soft, Active Bowel Sounds. Negative: Tender, Distended Male genitourinary: Positive: normal Skin: Positive: Clear Incision: Cardiac Cath Site (no hematoma) Musculoskeletal: No Pain, Normal Range of Motion Extremities: Present: normal. Absent: edema Results Cardiac Enzymes 02/22/22 Range/Units 18:14 CK-MB (CK-2) 4.2 H (0.0-4.0) ng/mL Coagulation 02/22/22 Range/Units 18:14 PT 14.0 (12.2-14.9) Sec. INR 0.97 (0.87-1.13) APTT 37.2 H (24.2-36.6) Sec. - Imaging and Cardiology Cardiac cath: report reviewed (Cardiac cath revealed left main patent LAD proximal 99% diagonal 1 patent and distal LAD at the apex 100% circumflex patent OM1 OM 2 patent RCA patent borderline normal LV function with elevated left end-diastolic pressure has successful PCI of the proximal to mid LAD across diagonal 1 with a drug-e) EKG interpretations - Telemetry EKG Rhythm: Sinus Rhythm (nsr acute anterior.lateral mi) Assessment and Plan 46-year-old male with acute anterior lateral wall NJ had successful PCI of the proximal and mid LAD apical third of the LAD is occluded we will continue Aggrastat for 18 hours. Then change to IV heparin. Repeat cardiac catheterization with stent 48 hours. Echocardiogram. Aspirin Brilinta high- dose statin and beta-matthew. Echocardiogram. Discussed this with the patient and patient's . Critical time spent more than 31 minutes - Patient Problems (1) Hyperlipemia, mixed Current Visit: Yes Status: Chronic (2) Acute diastolic (congestive) heart failure Current Visit: Yes Status: Acute (3) Obesity hypoventilation syndrome Current Visit: Yes Status: Acute (4) STEMI (ST elevation myocardial infarction) Current Visit: Yes Status: Acute Qualifiers: Involved coronary artery: LAD coronary artery Qualified Code(s): I21.02 - ST elevation (STEMI) myocardial infarction involving left anterior descending coronary artery
[2022-02-22] MEDS ORDERED: SODIUM CHLORIDE 0.9% 1000 ML 1,000 ML IV SCH (19:15)
--- NOTE | 2022-02-22 20:12 | Cardiac Catherization Report ---
DATE OF SERVICE: 02/22/2022 LEFT HEART CATHETERIZATION/ PERCUTANEOUS CORONARY INTERVENTION/INTRAVASCULAR ULTRASOUND AND THROMBECTOMY REPORT. PROCEDURE: Procedure was done on 02/22/2022. CLINICAL INFORMATION: This is a 46-year-old gentleman, recovering alcohol 3 years free, nonsmoker, presents with one week of chest discomfort, midsternal, no radiation, has been going on and off, lasting for hours at a time, came to the ED, EKG shows acute anterolateral ND with reciprocal changes. The patient was brought to the general laborer. DESCRIPTION OF PROCEDURE: Procedure was done via the right radial artery, sterile technique and local anesthesia. A 6-German radial sheath inserted. LV gram done in UZBEK and DIAZ shows borderline normal LV function, EF 50%, LVEDP at 32 mmHg, LV is 141 mmHg. Aortic is 141/92 mmHg. No gradient across the aortic valve on pullback. RCA engaged with JR4 catheter, medium to large caliber vessel, patent. PDA, PLV are small caliber vessel is patent. Left system engaged with an EBU 3.5 catheter. Left main is large and patent. Circumflex is a large caliber vessel is patent AV groove. OM1, OM2 are medium caliber was patent. Ramus small caliber was patent. LAD is proximal 99% lesion ruptured plaque. Diagonal 1 patent and then the LAD distal one third is 100%. 1. Then percutaneous coronary intervention of the LAD cross a Runthrough wire to distal LAD. 2. Then ballooned the distal LAD with 2 x 12 balloon x5 inflations and the proximal section across diagonal 1 still the distal apical LAD still had clot, then we used a CAT RX device for thrombectomy times several passes without resolution of the distal clot. Then, we used intracoronary adenosine 100 mcg given 4 times with improvement in flow and diagonal. Circumflex in the proximal LAD, but the distal apical LAD still 100%. 3. Intravascular ultrasound showed distal reference vessel 2.2 mm at the apex and then proximal portion of it was 3.5 x 4.0. 4. Stented proximal LAD across diagonal 1 with a drug-eluting Resolute [place] 3.5 x 26 mm at 18 atmospheres. Postdilated the mid and proximal section with a 4.0 x 12 noncompliant balloon at 18 atmospheres. Good angiographic results, ANDRZEJ 3 flow into this circumflex continued. The ramus continued. Diagonal continued and the mid LAD, but at the apical LAD with 100% despite multiple mechanical thrombectomy with a balloon and aspiration catheter, intracoronary nitro and adenosine. 5. Remove coronary wire ANDRZEJ 3 flow into the diagonal, circumflex and LAD with apical LAD is occluded. 6. The patient's chest pain has dramatically improved down to 2/10. 7. A 6-German guiding catheter taken over a guidewire. A 6-German radial sheath was discontinued. Radial band applied. No hematoma, no bleeding. SUMMARY: 1. Successful PCI of the proximal mid LAD with a drug-eluting Resolute 3.5 mm x 26 mm at 18 atmospheres. Postdilated 4.0 x 12 mm at 18 atmospheres across diagonal 1. Diagonal 1 is a medium caliber vessel, patent. The apical part of the LAD is occluded. Ramus small caliber, patent. Circumflex, large, dominant vessel, patent. OM1, OM2 medium to large caliber, patent. 2. RCA: Medium to large caliber vessel, patent. PDA, PLV are small caliber was patent. LV gram done in UZBEK and DIAZ shows borderline normal LV function, EF 50% with elevated left end-diastolic pressure. RECOMMENDATIONS: The patient will be given aspirin, Brilinta, high dose statin and beta matthew. Continue Aggrastat for 18 hours and after that consider IV heparin and consider repeat cardiac catheterization and 48-72 hours. Discussed this with the patient and the patient's family in detail. TID: [id number] RECEIPT: [id number] JAIMEE/JACEY
--- NOTE | 2022-02-22 21:00 | XRay Report ---
CHEST 1 VIEW INDICATION / CLINICAL INFORMATION: chest pain. COMPARISON: 10/16/2018 FINDINGS: SUPPORT DEVICES: None. HEART / MEDIASTINUM: No significant abnormality. LUNGS / PLEURA: No significant pulmonary or pleural abnormality. No pneumothorax. ADDITIONAL FINDINGS: No significant additional findings. IMPRESSION: 1. No acute findings. Signer Name: Jeffery Finch MD Signed: 02/22/2022 8:56 PM Workstation Name: [id number]
[2022-02-22 21:30] LABS: Chol/HDL Ratio 3.66 %
[2022-02-22] MEDS: METOPROLOL TARTRATE 50 MG TAB PO SCH (21:41)
[2022-02-22] MEDS: TICAGRELOR 90 MG TAB PO SCH (21:42)
[2022-02-23] MEDS: FOLIC ACID 1 MG TAB PO SCH ×2 (01:08→09:31)
[2022-02-23] MEDS: oxyCODONE /ACETAMINOPHEN 5-325MG TAB PO PRN ×2 (02:26→22:06)
[2022-02-23 03:20] LABS: Basophils % (Auto) 0.5 % (0.0-1.8); Eosinophils # (Auto) 0.2 K/mm3 (0.0-0.4); Eosinophils % (Auto) 1.9 % (0.0-4.3); Hemoglobin 16.6 gm/dl (11.8-15.2); Lymphocytes # (Auto) 1.8 K/mm3 (1.2-5.4); Lymphocytes % (Auto) 22.3 % (13.4-35.0); Mean Corpuscular HGB Conc 33 % (32-34); Mean Corpuscular Volume 82 fl (84-94); Monocytes # (Auto) 0.6 K/mm3 (0.0-0.8); Monocytes % (Auto) 7.7 % (0.0-7.3); Platelet Count 555 K/mm3 (140-440); Red Cell Distribution Width 15.1 % (13.2-15.2)
[2022-02-23 04:17] LABS: BUN/Creatinine Ratio 12; Blood Urea Nitrogen 12 mg/dL (9-20); Calcium 8.7 mg/dL (8.4-10.2); Hemolysis Index 18
[2022-02-23] MEDS: METOPROLOL TARTRATE 50 MG TAB PO SCH ×2 (09:31→21:56)
[2022-02-23] MEDS: ASPIRIN 81 MG TAB CHEW PO SCH (09:31)
[2022-02-23] MEDS: TICAGRELOR 90 MG TAB PO SCH ×2 (09:35→21:57)
[2022-02-23] MEDS: LOSARTAN 25 MG TAB PO SCH (09:37)
[2022-02-23] MEDS ORDERED: HEPARIN 10,000 UNITS/10 ML VIAL IV PRN (12:36)
--- NOTE | 2022-02-23 12:43 | Consultation ---
History of Present Illness Consult date: 02/23/22 Requesting physician: DEANDRE ALBA Reason for consult: other (STEMI) History of present illness: PULMONARY/CCM CONSULT NOTE (Full dictation # [id number]) Please see dictated notes for full details Past History Past Medical History: GERD, other (See HPI) Past Surgical History: No surgical history, Other (Reviewed) Social history: , lives with family Family history: diabetes, hypertension Medications and Allergies Allergies Allergy/AdvReac Type Severity Reaction Status Date / Time No Known Allergies Allergy Verified 02/22/22 16:49 Home Medications Medication Instructions Recorded Confirmed Last Taken Type Folic Acid 0.4 mg PO QDAY #30 tablet 10/17/18 Unknown Rx Multivitamin [Multiple Vitamins] 1 each PO DAILY #30 tablet 10/17/18 Unknown Rx Thiamine [Vitamin B-1] 100 mg PO QDAY #30 tablet 10/17/18 Unknown Rx LORazepam [Ativan] 1 mg PO TID PRN #12 tablet 12/13/19 Unknown Rx Active Meds: Active Medications Acetaminophen (Acetaminophen 325 Mg Tab) 650 mg PO Q6H PRN PRN Reason: Pain MILD(1-3)/Fever >100.5/DOLL Albuterol (Albuterol 2.5 Mg/3 Ml Nebu) 2.5 mg IH Q3HRT PRN PRN Reason: Shortness Of Breath Aspirin (Aspirin 81 Mg Tab Chew) 81 mg PO QDAY ON LICENSE OF [facility] Last Admin: 02/23/22 09:31 Dose: 81 mg Atorvastatin Calcium (Atorvastatin 40 Mg Tab) 80 mg PO QHS ON LICENSE OF [facility] Last Admin: 02/22/22 21:41 Dose: 80 mg Folic Acid (Folic Acid 1 Mg Tab) 1 mg PO QDAY ON LICENSE OF [facility] Last Admin: 02/23/22 09:31 Dose: 1 mg Heparin Sodium (Porcine) (Heparin 10,000 Units/10 Ml Vial) 6,000 unit 60 unit/kg (6000 unit) IV ONCE ONE Stop: 02/23/22 12:37 Heparin Sodium (Porcine) (Heparin 10,000 Units/10 Ml Vial) 4,000 unit 40 unit/kg (4000 unit) IV Q6H PRN PRN Reason: Anti-Xa Assay < 0.1 units/ml Heparin Sodium/Sodium Chloride (Heparin/ 0.45% Nacl-25,000 Unit/500 Ml) 25,000 unit in 500 mls @ 29.937 mls/hr IV TITRATE JAMAL; Protocol Sodium Chloride (Nacl 0.9% 500 Ml) 500 mls @ 50 mls/hr IV DIRECT JAMAL Stop: 02/23/22 22:59 Lorazepam (Lorazepam 2 Mg/Ml Vial) 2 mg IV Q1HR PRN PRN Reason: CIWA-Ar 8-15 Losartan Potassium (Losartan 25 Mg Tab) 12.5 mg PO QDAY ON LICENSE OF [facility] Last Admin: 02/23/22 09:37 Dose: 12.5 mg Metoprolol Tartrate (Metoprolol Tartrate 50 Mg Tab) 50 mg PO BID ON LICENSE OF [facility] Last Admin: 02/23/22 09:31 Dose: 50 mg Morphine Sulfate (Morphine 4 Mg/1 Ml Inj) 1 mg IV Q6H PRN PRN Reason: Pain , Severe (7-10) Multivitamins (Multivitamins ,Therapeutic Tab) 1 each PO QDAY ON LICENSE OF [facility] Oxycodone/Acetaminophen (Oxycodone /Acetaminophen 5-325mg Tab) 1 tab PO Q6H PRN PRN Reason: Pain, Moderate (4-6) Last Admin: 02/23/22 02:26 Dose: 1 tab Sodium Chloride (Sodium Chloride 0.9% 10 Ml Flush Syringe) 10 ml IV BID ON LICENSE OF [facility] Last Admin: 02/23/22 09:37 Dose: 10 ml Sodium Chloride (Sodium Chloride 0.9% 10 Ml Flush Syringe) 10 ml IV PRN PRN PRN Reason: LINE FLUSH Thiamine HCl (Thiamine 100 Mg Tab) 100 mg PO QDAY ON LICENSE OF [facility] Ticagrelor (Ticagrelor 90 Mg Tab) 90 mg PO BID ON LICENSE OF [facility] Last Admin: 02/23/22 09:35 Dose: 90 mg Physical Examination Vital signs: Vital Signs Temp Pulse Resp BP Pulse Ox 98.9 F 88 18 155/95 98 02/22/22 16:44 02/22/22 16:44 02/22/22 16:44 02/22/22 16:44 02/22/22 16:44 Results - Laboratory Findings CBC and BMP: 02/23/22 13:17 02/23/22 03:03 PT/INR, D-dimer PT 14.0 Sec. (12.2-14.9) 02/22/22 18:14 INR 0.97 (0.87-1.13) 02/22/22 18:14 Abnormal lab findings: Abnormal Labs 02/22/22 02/22/22 02/22/22 18:14 18:14 20:37 RBC Hgb Hct MCV MCH Plt Count [place] % (Auto) APTT 37.2 H Carbon Dioxide Total Creatine Kinase 479 H 1389 H CK-MB (CK-2) 4.2 H 103.0 H CK-MB (CK-2) Rel Index 7.4 H Troponin T 1.420 H* D 02/23/22 02/23/22 03:03 03:03 RBC 6.10 H Hgb 16.6 H Hct 50.0 H MCV 82 L MCH 27 L Plt Count 555 H [place] % (Auto) 7.7 H APTT Carbon Dioxide 21 L Total Creatine Kinase CK-MB (CK-2) CK-MB (CK-2) Rel Index Troponin T 1.850 H* D
[2022-02-23] MEDS ORDERED: SODIUM CHLORIDE 0.9% 500 ML 500 ML IV SCH (13:00)
[2022-02-23] MEDS ORDERED: HEPARIN/ 0.45% NACL DRIP 25,000 UNIT/500 ML BAG IV SCH (13:00)
[2022-02-23] MEDS ORDERED: HEPARIN 10,000 UNITS/10 ML VIAL IV SCH ×2 (13:00)
[2022-02-23 13:39] LABS: Hematocrit 53.7 % (35.5-45.6); Hemoglobin 17.2 gm/dl (11.8-15.2)
[2022-02-23 13:51] LABS: INR 0.97 (0.87-1.13); Partial Thromboplastin Time 31.4 Sec. (24.2-36.6)
--- NOTE | 2022-02-23 14:52 | Progress Note ---
<DEANDRE ALBA - Last Filed: 02/23/22 16:35> Assessment and Plan Assessment and plan: This is a 46-year-old male with obesity, GERD, ONESIMO admitted with a STEMI Neuro: h/o EtOH dependence, ONESIMO -CIWA protocol -Folic acid, thiamine -Restart home bupropion, hydroxyzine, gabapentin -Avoid delirium -Reorientation as needed -Maintain sleep-wake cycle Cardiac: STEMI, elevated troponin, HLD -Cardiology and CCM consulted, appreciate recommendations -S/p PCI with drug-eluting stent to mid LAD -intraop LVEF 50% with elevated left end-diastolic pressure -S/p Aggrastat drip for 18 hours -Currently on heparin drip -Beta-matthew, statin, ARB, ASA, Brilinta -Blood pressure monitoring per protocol -Echocardiogram pending -Trend troponin -Per cardio: Patient scheduled for cardiac cath Wednesday Respiratory: NAD -SPO2 monitoring -Supplemental oxygenation as needed -Pulmonary hygiene GI: h/o GERD, obesity -24 hours +203 mL -PPI -Cardiac diet : NAD -Strict intake and output -Renally dose medications -Avoid nephrotoxic medications -Daily weights -Trend BMP ID: NAD -f/u blood culture -Monitor WBC and temperature curve Endo: NAD -Avoid hypoglycemia Heme: Thrombocytosis -Trend CBC -Transfuse hemoglobin less than 7 -Monitor for signs of bleeding -SCDs to BLE while in bed -Systemic anticoagulation with heparin drip The high probability of a clinically significant, sudden or life threatening deterioration of the [cardio] system(s) required my full and direct attention, intervention and personal management. The aggregate critical care time was [60] minutes. This time is in addition to time spent performing reported procedures but includes the following: [x] Data Review and interpretation [x] Patient assessment and monitoring of vital signs [x] Documentation [x] Medication orders and management Disposition Plan: transfer to floor Total Time Spent with Patient (Minutes): 60 History Interval history: This is a 46-year-old male with obesity, GERD, ONESIMO and recovering EtOH dependent presented to emergency department on 02/22 with chest pain over the past 2 weeks with persistent and worsening symptoms over the past day, pain currently rated at a 8 out of 10 described as constant, substernal, sharp in nature, worsened with exertion, relieved with rest, associated with diaphoresis and nausea via private vehicle. EKG in the emergency department was consistent with STEMI and patient was treated with therapeutic anticoagulation and taken to the [facility] emergently with cardiology consulted. Patient was admitted to the hospital service with consult to cardiology and CCM s/p PCI with YAN. Hospital course to date: 02/23: Patient still complains of chest pain however it is much improved according to patient, remains on Aggrastat drip till noon and switched to heparin. 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 Hospitalist Physical - Constitutional Vitals: Temp Pulse Resp BP Pulse Ox 98.2 F 84 18 114/71 98 02/23/22 11:19 02/23/22 13:50 02/23/22 13:50 02/23/22 13:50 02/23/22 13:50 General appearance: Present: no acute distress, well-nourished HEART Score - HEART Score Troponin: Troponin T 1.850 ng/mL (0.00-0.029) H* D 02/23/22 03:03 Results - Labs CBC & Chem 7: 02/23/22 13:17 02/23/22 03:03 Labs: Laboratory Last Values WBC 8.1 K/mm3 (4.5-11.0) 02/23/22 03:03 RBC 6.10 M/mm3 (3.65-5.03) H 02/23/22 03:03 Hgb 17.2 gm/dl (11.8-15.2) H 02/23/22 13:17 Hct 53.7 % (35.5-45.6) H 02/23/22 13:17 MCV 82 fl (84-94) L 02/23/22 03:03 MCH 27 pg (28-32) L 02/23/22 03:03 MCHC 33 % (32-34) 02/23/22 03:03 RDW 15.1 % (13.2-15.2) 02/23/22 03:03 Plt Count 605 K/mm3 (140-440) H 02/23/22 13:17 Lymph % (Auto) 22.3 % (13.4-35.0) 02/23/22 03:03 [place] % (Auto) 7.7 % (0.0-7.3) H 02/23/22 03:03 Eos % (Auto) 1.9 % (0.0-4.3) 02/23/22 03:03 Baso % (Auto) 0.5 % (0.0-1.8) 02/23/22 03:03 Lymph # (Auto) 1.8 K/mm3 (1.2-5.4) 02/23/22 03:03 [place] # (Auto) 0.6 K/mm3 (0.0-0.8) 02/23/22 03:03 Eos # (Auto) 0.2 K/mm3 (0.0-0.4) 02/23/22 03:03 Baso # (Auto) 0.0 K/mm3 (0.0-0.1) 02/23/22 03:03 Seg Neutrophils % 67.6 % (40.0-70.0) 02/23/22 03:03 Seg Neutrophils # 5.5 K/mm3 (1.8-7.7) 02/23/22 03:03 PT 13.9 Sec. (12.2-14.9) 02/23/22 13:17 INR 0.97 (0.87-1.13) 02/23/22 13:17 APTT 31.4 Sec. (24.2-36.6) 02/23/22 13:17 Sodium 137 mmol/L (137-145) 02/23/22 03:03 Potassium 3.9 mmol/L (3.6-5.0) 02/23/22 03:03 Chloride 104.0 mmol/L (98-107) 02/23/22 03:03 Carbon Dioxide 21 mmol/L (22-30) L 02/23/22 03:03 Anion Gap 16 mmol/L 02/23/22 03:03 BUN 12 mg/dL (9-20) 02/23/22 03:03 Creatinine 1.0 mg/dL (0.8-1.3) 02/23/22 03:03 Estimated GFR > 60 ml/min 02/23/22 03:03 BUN/Creatinine Ratio 12 % 02/23/22 03:03 Glucose 98 mg/dL (75-100) 02/23/22 03:03 Calcium 8.7 mg/dL (8.4-10.2) 02/23/22 03:03 Total Creatine Kinase 1389 units/L (55-170) H 02/22/22 20:37 CK-MB (CK-2) 103.0 ng/mL (0.0-4.0) H 02/22/22 20:37 CK-MB (CK-2) Rel Index 7.4 (0-4) H 02/22/22 20:37 Troponin T 1.850 ng/mL (0.00-0.029) H* D 02/23/22 03:03 Triglycerides 62 mg/dL (2-149) 02/22/22 20: Cholesterol 187 mg/dL (50-199) 02/22/22 20:37 LDL Cholesterol Direct 127 mg/dL (50-130) 02/22/22 20:37 HDL Cholesterol 51 mg/dL (40-59) 02/22/22 20:37 Cholesterol/HDL Ratio 3.66 % 02/22/22 20:37 Blood Type O POSITIVE 02/22/22 18:14 Antibody Screen Negative 02/22/22 18:14 Lopez/IV: Voiding Method Urinal Active Medications - Current Medications Current Medications: Generic Name Dose Route Start Last Admin Trade Name Freq PRN Reason Stop Dose Admin Acetaminophen 650 mg 02/22/22 17:11 Acetaminophen 325 Mg Tab PO Q6H PRN Pain MILD(1-3)/Fever >100.5/DOLL Albuterol 2.5 mg 02/22/22 17:11 Albuterol 2.5 Mg/3 Ml Nebu IH Q3HRT PRN Shortness Of Breath Aspirin 81 mg 02/23/22 10:00 02/23/22 09:31 Aspirin 81 Mg Tab Chew PO 81 mg QDAY JAMAL Administration Atorvastatin Calcium 80 mg 02/22/22 22:00 02/22/22 21:41 Atorvastatin 40 Mg Tab PO 80 mg QHS JAMAL Administration Bupropion HCl 300 mg 02/23/22 15:00 Bupropion Xl 150 Mg Tab PO QDAY JAMAL Famotidine 20 mg 02/23/22 22:00 Famotidine 20 Mg Tab PO QHS JAMAL Folic Acid 1 mg 02/22/22 18:52 02/23/22 09:31 Folic Acid 1 Mg Tab PO 1 mg QDAY JAMAL Administration Gabapentin 300 mg 02/23/22 22:00 Gabapentin 300 Mg Cap PO BID [facility] Heparin Sodium (Porcine) 4,000 unit 02/23/22 12:36 Heparin 10,000 Units/10 Ml Vial 40 unit/kg (4000 unit) IV Q6H PRN Anti-Xa Assay < 0.1 units/ml Hydroxyzine HCl 25 mg 02/23/22 20:00 Hydroxyzine Hcl 25 Mg Tab PO TID JAMAL Heparin Sodium/Sodium Chloride 25,000 unit in 500 mls @ 20 mls/hr 02/23/22 13:00 02/23/22 13:19 Heparin/ 0.45% Nacl-25,000 Unit/500 Ml IV 1,000 units/hr TITRATE JAMAL 20 mls/hr Administration Protocol 1,000 UNITS/HR Sodium Chloride 500 mls @ 50 mls/hr 02/23/22 13:00 02/23/22 13:19 Nacl 0.9% 500 Ml IV 02/23/22 22:59 50 mls/hr DIRECT JAMAL Administration Lorazepam 2 mg 02/22/22 18:52 Lorazepam 2 Mg/Ml Vial IV Q1HR PRN CIWA-Ar 8-15 Losartan Potassium 12.5 mg 02/23/22 10:00 02/23/22 09:37 Losartan 25 Mg Tab PO 12.5 mg QDAY JAMAL Administration Metoprolol Tartrate 50 mg 02/22/22 22:00 02/23/22 09:31 Metoprolol Tartrate 50 Mg Tab PO 50 mg BID JAMAL Administration Morphine Sulfate 1 mg 02/22/22 17:11 Morphine 4 Mg/1 Ml Inj IV Q6H PRN Pain , Severe (7-10) Multivitamins 1 each 02/23/22 18:52 Multivitamins ,Therapeutic Tab PO QDAY JAMAL Oxycodone/Acetaminophen 1 tab 02/22/22 17:11 02/23/22 02:26 Oxycodone /Acetaminophen 5-325mg Tab PO 1 tab Q6H PRN Administration Pain, Moderate (4-6) Sodium Chloride 10 ml 02/22/22 22:00 02/23/22 09:37 Sodium Chloride 0.9% 10 Ml Flush Syringe IV 10 ml BID JAMAL Administration Sodium Chloride 10 ml 02/22/22 17:11 Sodium Chloride 0.9% 10 Ml Flush Syringe IV PRN PRN LINE FLUSH Thiamine HCl 100 mg 02/23/22 18:52 Thiamine 100 Mg Tab PO QDAY JAMAL Ticagrelor 90 mg 02/22/22 22:00 02/23/22 09:35 Ticagrelor 90 Mg Tab PO 90 mg BID JAMAL Administration <WENDY OCAMPO - Last Filed: 02/26/22 16:54> Assessment and Plan Assessment and plan: I saw and evaluated the patient. I agree with the findings and the plan of care as documented in the Nurse Practitioner's~note, with the following corrections and additions. Hospitalist Physical - Constitutional Vitals: Temp Pulse Resp BP Pulse Ox 97.4 F L 73 18 125/85 97 02/25/22 15:35 02/25/22 15:35 02/25/22 15:35 02/25/22 15:35 02/25/22 15:35 HEART Score - HEART Score Troponin: Troponin T 1.850 ng/mL (0.00-0.029) H* D 02/23/22 03:03 Results - Labs CBC & Chem 7: 02/25/22 03:39 02/25/22 03:39 Labs: Laboratory Last Values WBC 8.3 K/mm3 (4.5-11.0) 02/25/22 03:39 RBC 6.33 M/mm3 (3.65-5.03) H 02/25/22 03:39 Hgb 17.3 gm/dl (11.8-15.2) H 02/25/22 03:39 Hct 51.6 % (35.5-45.6) H 02/25/22 03:39 MCV 82 fl (84-94) L 02/25/22 03:39 MCH 27 pg (28-32) L 02/25/22 03:39 MCHC 33 % (32-34) 02/25/22 03:39 RDW 15.2 % (13.2-15.2) 02/25/22 03:39 Plt Count 578 K/mm3 (140-440) H 02/25/22 03:39 Lymph % (Auto) 28.1 % (13.4-35.0) 02/25/22 03:39 [place] % (Auto) 9.1 % (0.0-7.3) H 02/25/22 03:39 Eos % (Auto) 2.4 % (0.0-4.3) 02/25/22 03:39 Baso % (Auto) 0.8 % (0.0-1.8) 02/25/22 03:39 Lymph # (Auto) 2.3 K/mm3 (1.2-5.4) 02/25/22 03:39 [place] # (Auto) 0.8 K/mm3 (0.0-0.8) 02/25/22 03:39 Eos # (Auto) 0.2 K/mm3 (0.0-0.4) 02/25/22 03:39 Baso # (Auto) 0.1 K/mm3 (0.0-0.1) 02/25/22 03:39 Seg Neutrophils % 59.6 % (40.0-70.0) 02/25/22 03:39 Seg Neutrophils # 5.0 K/mm3 (1.8-7.7) 02/25/22 03:39 PT 13.8 Sec. (12.2-14.9) 02/25/22 03:39 INR 0.96 (0.87-1.13) 02/25/22 03:39 APTT 79.6 Sec. (24.2-36.6) H* 02/25/22 03:39 Heparin Anti-Xa Level 0.55 U.I./ml (0.3-0.7) 02/24/22 17:10 Sodium 138 mmol/L (137-145) 02/25/22 03:39 Potassium 4.3 mmol/L (3.6-5.0) 02/25/22 03:39 Chloride 102.1 mmol/L (98-107) 02/25/22 03:39 Carbon Dioxide 25 mmol/L (22-30) 02/25/22 03:39 Anion Gap 15 mmol/L 02/25/22 03:39 BUN 14 mg/dL (9-20) 02/25/22 03:39 Creatinine 1.2 mg/dL (0.8-1.3) 02/25/22 03:39 Estimated GFR > 60 ml/min 02/25/22 03:39 BUN/Creatinine Ratio 12 % 02/25/22 03:39 Glucose 103 mg/dL (75-100) H 02/25/22 03:39 POC Glucose 83 mg/dL (70-105) 02/25/22 15:36 Hemoglobin A1c 5.7 % (4-6) 02/24/22 04:35 Calcium 9.0 mg/dL (8.4-10.2) 02/25/22 03:39 Phosphorus 3.90 mg/dL (2.5-4.5) 02/24/22 04:35 Magnesium 2.00 mg/dL (1.7-2.3) 02/24/22 04:35 Total Creatine Kinase 1389 units/L (55-170) H 02/22/22 20:37 CK-MB (CK-2) 103.0 ng/mL (0.0-4.0) H 02/22/22 20:37 CK-MB (CK-2) Rel Index 7.4 (0-4) H 02/22/22 20:37 Troponin T 1.850 ng/mL (0.00-0.029) H* D 02/23/22 03:03 Triglycerides 62 mg/dL (2-149) 02/22/22 20:37 Cholesterol 187 mg/dL (50-199) 02/22/22 20:37 LDL Cholesterol Direct 127 mg/dL (50-130) 02/22/22 20:37 HDL Cholesterol 51 mg/dL (40-59) 02/22/22 20:37 Cholesterol/HDL Ratio 3.66 % 02/22/22 20:37 Blood Type O POSITIVE 02/22/22 18:14 Antibody Screen Negative 02/22/22 18:14 Lopez/IV: Voiding Method Urinal
--- NOTE | 2022-02-23 15:17 | Progress Note ---
Assessment and Plan Patient patient currently chest pain-freePatient is a 46-year-old male came to the ED yesterday for chest pain and found to have STEMI STEMI CAD Obesity Hyperlipidemia Cardiac cath -revealed left main patent LAD proximal 99% diagonal 1 patent and distal LAD at the apex 100% circumflex patent OM1 OM 2 patent RCA patent borderline normal LV function with elevated left end-diastolic pressure has successful PCI of the proximal to mid LAD across diagonal 1 with a drug-e) Plan: Patient currently chest pain free Patient currently on aspirin, Lipitor 80 mg p.o. nightly, Aggrastat, losartan 12.5 mg p.o. daily, metoprolol 50 mg p.o. twice daily, and Brilinta Once Aggrastat is stopped convert to heparin drip x48 hours Patient scheduled for cardiac cath Wednesday Echo pending Discussed plan of care with patient who verbalized understanding and acknowledgment Patient seen in conjunction with Dr. Ledesma who agrees with this plan of care - Patient Problems (1) Acute diastolic (congestive) heart failure Current Visit: Yes Status: Acute (2) Diastolic CHF Current Visit: Yes Status: Acute Qualifiers: Heart failure chronicity: acute Qualified Code(s): I50.31 - Acute diastolic (congestive) heart failure (3) Obesity hypoventilation syndrome Current Visit: Yes Status: Acute (4) STEMI (ST elevation myocardial infarction) Current Visit: Yes Status: Acute Qualifiers: Involved coronary artery: LAD coronary artery Qualified Code(s): I21.02 - ST elevation (STEMI) myocardial infarction involving left anterior descending coronary artery Subjective Date of service: 02/23/22 Principal diagnosis: STEMI Interval history: Patient resting in bed in no acute distress Sinus 70s to 80s on monitor Objective Vital Signs Temp Pulse Pulse Resp BP BP Pulse Ox 02/23/22 13:50 84 18 114/71 98 02/23/22 13:40 82 9 L 123/77 99 02/23/22 13:30 77 21 123/77 97 02/23/22 13:20 78 16 131/78 98 02/23/22 13:10 77 14 131/90 98 02/23/22 13:00 79 12 131/90 98 02/23/22 12:50 79 11 L 125/78 97 02/23/22 12:40 82 9 L 113/64 98 02/23/22 12:30 82 11 L 113/64 99 05/16/22 12:20 79 8 L 119/74 98 02/23/22 12:10 81 9 L 128/95 98 02/23/22 12:00 83 83 9 L 128/95 98 02/23/22 11:50 86 11 L 134/89 98 02/23/22 11:40 79 23 137/91 97 02/23/22 11:30 80 12 137/91 98 02/23/22 11:20 80 15 137/91 98 02/23/22 11:19 98.2 F 02/23/22 11:10 74 10 L 148/101 97 02/23/22 11:00 77 10 L 148/101 97 02/23/22 10:50 76 14 128/87 99 02/23/22 10:40 77 14 146/100 99 02/23/22 10:30 80 16 146/100 96 02/23/22 10:20 82 10 L 134/86 98 02/23/22 10:10 82 11 L 128/80 96 02/23/22 10:00 80 13 128/80 95 02/23/22 09:50 80 12 128/86 98 02/23/22 09:40 81 15 161/109 95 02/23/22 09:37 78 161/109 02/23/22 09:31 78 161/109 02/23/22 09:30 161/109 98 02/23/22 09:20 146/104 96 02/23/22 09:10 155/98 97 02/23/22 09:00 155/98 96 02/23/22 08:50 153/109 99 02/23/22 08:40 131/89 97 02/23/22 08:30 81 10 L 131/89 98 02/23/22 08:20 77 13 132/85 97 02/23/22 08:10 77 20 136/102 97 02/23/22 08:00 95 H 95 H 20 136/102 98 02/23/22 07:50 82 17 143/95 98 02/23/22 07:40 92 H 19 138/88 98 02/23/22 07:30 80 13 138/88 98 02/23/22 07:20 75 14 136/85 97 02/23/22 07:10 98.2 F 77 14 129/83 98 02/23/22 07:00 79 10 L 129/83 97 02/23/22 06:50 79 11 L 140/90 98 02/23/22 06:40 79 13 145/110 97 02/23/22 06:30 75 12 145/110 97 02/23/22 06:20 67 24 138/100 97 02/23/22 06:10 70 22 152/109 97 02/23/22 06:00 76 22 152/109 97 02/23/22 05:50 71 19 149/103 97 02/23/22 05:40 71 13 149/103 96 02/23/22 05:30 67 12 149/103 98 02/23/22 05:20 71 21 138/93 96 02/23/22 05:10 72 16 160/101 96 02/23/22 05:00 72 25 H 160/101 97 02/23/22 04:50 77 18 144/99 95 02/23/22 04:40 71 10 L 150/95 96 02/23/22 04:30 77 13 150/95 95 02/23/22 04:20 73 14 135/84 97 02/23/22 04:10 81 8 L 151/91 97 02/23/22 04:00 78 14 151/91 02/23/22 03:50 79 11 L 120/83 96 02/23/22 03:40 79 19 125/78 97 02/23/22 03:30 78 11 L 125/78 96 02/23/22 03:20 78 18 148/90 97 02/23/22 03:10 76 14 153/107 97 02/23/22 03:00 70 16 153/107 97 02/23/22 02:50 83 15 152/103 98 02/23/22 02:40 82 13 160/103 98 02/23/22 02:30 82 16 160/103 98 02/23/22 02:20 83 15 152/103 97 02/23/22 02:00 100 02/22/22 22:00 86 02/22/22 21:41 100 H 152/92 02/22/22 21:30 100 02/22/22 20:30 98.4 F 02/22/22 19:30 100 02/22/22 17:59 96 H 18 151/95 100 02/22/22 17:30 100 02/22/22 16:44 98.9 F 88 18 155/95 98 - Physical Examination HEENT: Positive: PERRL, Mucus Membranes Moist Neck: Positive: neck supple, trachea midline Cardiac: Positive: Reg Rate and Rhythm Lungs: Positive: Normal Breath Sounds Neuro: Positive: Grossly Intact Abdomen: Positive: Soft, Active Bowel Sounds. Negative: Tender, Distended Skin: Positive: Clear Incision: Cardiac Cath Site (no hematoma) Musculoskeletal: No Pain, Normal Range of Motion Extremities: Present: normal. Absent: edema - Labs and Meds Cardiac Enzymes 02/22/22 02/22/22 Range/Units 18:14 20:37 CK-MB (CK-2) 4.2 H 103.0 H (0.0-4.0) ng/mL Coagulation 02/22/22 02/23/22 Range/Units 18:14 13:17 PT 14.0 13.9 (12.2-14.9) Sec. INR 0.97 0.97 (0.87-1.13) APTT 37.2 H 31.4 (24.2-36.6) Sec. Lipids 02/22/22 Range/Units 20:37 Triglycerides 62 (2-149) mg/dL Cholesterol 187 (50-199) mg/dL HDL Cholesterol 51 (40-59) mg/dL Cholesterol/HDL Ratio 3.66 % CBC 02/23/22 02/23/22 Range/Units 03:03 13:17 WBC 8.1 (4.5-11.0) K/mm3 RBC 6.10 H (3.65-5.03) M/mm3 Hgb 16.6 H 17.2 H (11.8-15.2) gm/dl Hct 50.0 H 53.7 H (35.5-45.6) % Plt Count 555 H 605 H (140-440) K/mm3 Lymph # (Auto) 1.8 (1.2-5.4) K/mm3 [place] # (Auto) 0.6 (0.0-0.8) K/mm3 Eos # (Auto) 0.2 (0.0-0.4) K/mm3 Baso # (Auto) 0.0 (0.0-0.1) K/mm3 Comprehensive Metabolic Panel 02/23/22 Range/Units 03:03 Sodium 137 (137-145) mmol/L Potassium 3.9 (3.6-5.0) mmol/L Chloride 104.0 (98-107) mmol/L Carbon Dioxide 21 L (22-30) mmol/L BUN 12 (9-20) mg/dL Creatinine 1.0 (0.8-1.3) mg/dL Glucose 98 (75-100) mg/dL Calcium 8.7 (8.4-10.2) mg/dL - Imaging and Cardiology Echo: pending Cardiac cath: report reviewed (Cardiac cath revealed left main patent LAD proximal 99% diagonal 1 patent and distal LAD at the apex 100% circumflex patent OM1 OM 2 patent RCA patent borderline normal LV function with elevated left end- diastolic pressure has successful PCI of the proximal to mid LAD across diagonal 1 with a drug-e) - Telemetry EKG Rhythm: Sinus Rhythm - EKG Sinus rhythms and dysrhythmias: sinus rhythm
[2022-02-23] MEDS: hydrOXYzine HCL 25 MG TAB PO SCH ×2 (15:25→20:00)
[2022-02-23] MEDS: buPROPion XL 150 MG TAB PO SCH (17:08)
[2022-02-23] MEDS: THIAMINE 100 MG TAB PO SCH (18:14)
[2022-02-23] MEDS: MULTIVITAMINS ,THERAPEUTIC TAB PO SCH (18:14)
[2022-02-23] MEDS: GABAPENTIN 300 MG CAP PO SCH (21:56)
[2022-02-23] MEDS: FAMOTIDINE 20 MG TAB PO SCH (21:57)
[2022-02-24 05:14] LABS: Hematocrit 51.9 % (35.5-45.6); Hemoglobin 16.9 gm/dl (11.8-15.2); Mean Corpuscular HGB Conc 33 % (32-34); Mean Corpuscular Volume 83 fl (84-94); Platelet Count 572 K/mm3 (140-440); Red Blood Count 6.26 M/mm3 (3.65-5.03); Red Cell Distribution Width 15.2 % (13.2-15.2)
--- NOTE | 2022-02-24 05:29 | Consultation ---
DATE OF CONSULTATION: 02/22/2022 PULMONARY CRITICAL CARE CONSULT NOTE CONSULTING PHYSICIAN: Dr. Fermin. REASON FOR CONSULTATION: ST elevation myocardial infarction. CHIEF COMPLAINT AND HISTORY OF PRESENT ILLNESS: The patient is a now 46-year-old obese male with past medical history significant amongst other things for a diagnosis of alcohol dependence, came into the Emergency Room complaining of chest pain. It has apparently been going on for about a week. It has been intermittent. He complained mostly of a feeling of gastroesophageal reflux disease with heartburn, some bloating, never thought much about it and he noticed some radiation to his right arm and then to his jaw. Again, never really felt much about it, but it was easily relieved with rest. He was able to continue with his daily and daytime activities. He denies any history of tobacco use or abuse of any significance whatsoever. On the day of presentation, the symptoms seemed to last a little bit long. The chest pain became constant. It was substernal. It was worsened with exertion. He went to the restroom to try and relieve himself. It did not help and ultimately he decided that he will come home from work and then be brought to the Emergency Room. In the Emergency Room, an EKG revealed evidence of an anterior ST elevation OR. He was given therapeutic anticoagulation and taken to the sleep lab technician for emergent intubation. Post-cath, I had discussed with the criminology professor to mention that the patient had a left main patent, LAD proximal 99%, diagonal 1 patent and distal LAD at the apex, 100% circumflex, patent OM1 and OM2, patent RCA and had borderline left ventricular function with elevated wedge pressures. He did undergo successful PCI of the proximal to mid left anterior descending. A drug-eluting Resolute stent was placed post-dilatation. He received intracoronary nitroglycerin and adenosine for thrombectomy. He was started on Aggrastat, brought into the intensive care unit where I stopped by to see him. At this time, he was pain free. He denied any nausea, vomiting, denied any bleeding problems in the past. No history of hemoptysis, no history of hematochezia, no history of hematuria. He also denied any new-onset leg pain or swelling, either unilaterally or bilaterally or any suggestion of a deep venous thrombosis. This really is as much of the history of presentation as I have. PAST MEDICAL HISTORY: Obesity, gastroesophageal reflux disease. PAST SURGICAL HISTORY: Denies. MEDICATIONS: He was on at the time I stopped by to see him, according to the medication administration record included the following: Tylenol 650 mg p.o. q. 6 hours p.r.n. mild pain or fevers, albuterol 2.5 mg nebulized q. 3 hours p.r.n. shortness of breath, aspirin 81 mg p.o. daily, Lipitor 80 mg p.o. at bedtime, Pepcid 20 mg p.o. at bedtime, folic acid 1 mg p.o. daily, heparin drip was going at 1000 units per hour. He was placed on a CIWA protocol with Ativan, Cozaar 12.5 mg p.o. daily, metoprolol 50 mg p.o. b.i.d., morphine sulfate 1 mg IV q. 6 hours p.r.n. severe pain, a daily multivitamin, Percocet 5/325 one tablet p.o. q. 6 hours p.r.n. moderate pain, thiamine 100 mg p.o. daily, and Brilinta 90 mg p.o. b.i.d. ALLERGIES: No known drug allergies. DIET: Obese gentleman. Denies acute weight loss or gain in the preceding few weeks to months. FAMILY AND SOCIAL HISTORY: Lives in the community. He has a history of alcohol abuse. Denies tobacco or illicit drug use or abuse. He is and lives with his family. FAMILY HISTORY: There is a family history of diabetes, hypertension, coronary artery disease. REVIEW OF SYSTEMS: No overt loss of consciousness. No new onset seizures. No new onset focal weakness. He had numbness to his right upper extremity. He denies gross hematochezia or melena. Denies gross hematuria or dysuria. No hematemesis, no hemoptysis. He denies palpitations. He denies heat or cold intolerance. Denied polydipsia, polyuria. Complete 13-system review of system was obtained. Pertinent positives and/or negatives as in body of history above, otherwise they are noncontributory. PHYSICAL EXAMINATION: VITAL SIGNS: At presentation, he was afebrile, temperature 98.9 degrees Fahrenheit, pulse of 88, respiratory rate of 18, blood pressure 155/95, O2 sats 98%, inspired oxygen concentration at that time was not recorded. When I saw him, they were 98% on room air. GENERAL: He is a middle-aged obese male. Normocephalic, atraumatic. Talking to me in full sentences with normal respiratory effort at rest. HEAD, EYES, EARS, NOSE AND THROAT: Anicteric. No conjunctival erythema. Oropharynx was moist. No gross jugular venous distention, no thyromegaly. Mallampati 3 oropharynx. Grossly, there were no palpable lymph nodes in the supraclavicular or submandibular lymph node chains. NECK: No gross jugular venous distention, no thyromegaly. LUNGS: Auscultation of both lung quezada unremarkable. They were clear bilaterally with good bilateral air movement. HEART: Sounds 1 and 2 are heard. There was regular rate and rhythm at the time of my evaluation without overt rubs or murmurs. ABDOMEN: Soft, full, protuberant. Bowel sounds are positive, nontender, no palpable hepatosplenomegaly. EXTREMITIES: Without overt digital clubbing or cyanosis, no pedal edema. He had a bandage to the right wrist, which was the cast introducer site. NEUROLOGIC: Pupils were equal, round, about 4 mm, reactive to light. Extraocular muscle movements were intact. He moves all 4 extremities spontaneously. PSYCHIATRIC: His mood was normal. His affect was appropriate. He had intact judgment and insight. SKIN: Normal turgor without overt cellulitis or rash in the areas I examined. Please see the wound care nurses' notes for full description of his skin. LABORATORY DATA: From my review are as follows: Admission white cell count 8100, hemoglobin 16.6, hematocrit 50.0, platelet count 555. No manual differential. INR was 1, within normal limits. Serum sodium was 137, potassium was 3.9, chloride 104, bicarbonate 21, BUN 12, creatinine 1.0 and a glucose of 98. CPK was 479 at presentation. Troponin was within normal limits. Troponin so far has peaked at 1.85. This was post-intervention. LDL cholesterol was 127. No microbiology studies. Chest x-ray, really a normal chest x-ray, no acute process that I can see here. He has had a 2D echocardiogram that showed an ejection fraction of 45-50% with mild diastolic dysfunction and RV systolic pressures of 24. ASSESSMENT: 1. ST elevation myocardial infarction, status post PCI and stenting. 2. Obesity. 3. History of alcohol abuse. 4. Heart failure with reduced ejection fraction. 5. Hemoconcentration at presentation. 6. Hyperlipidemia. PLAN: I have counseled continued tobacco abstinence. He has completed his Aggrastat course. He will remain on IV heparin therapy. Plan is to take him back to the sleep lab technician for further investigation as he still had some occluded small collaterals. Supplemental oxygen will be offered as necessary to keep sats greater than or equal to about 90%. He has appropriately been started on secondary preventive measures. He is on BP therapy, blood pressure control. He will be started on GI prophylaxis, especially with him being on full anticoagulation and considering his history of gastroesophageal reflux disease. I will defer to the criminology professor for further management. We will watch him closely. We will continue the CIWA protocol to watch for evidence of alcohol withdrawal. We will continue replacing folic acid, thiamine and multivitamins. Alcohol abstinence has also been counseled. Flu and pneumonia vaccination will be addressed per protocol. Thank you very much for the consult. We will follow along and make further recommendations as picture progresses/becomes clearer. He will continue to be monitored closely in the intensive care unit. He is critically ill, at very high risk of from cardiopulmonary system decompensation. At this time, I spent about 35-40 minutes of critical care time without overlap and excluding any procedural time that may be necessary. TID: [id number] RECEIPT: [id number] KAY/JANE
[2022-02-24 05:34] LABS: BUN/Creatinine Ratio 15; Blood Urea Nitrogen 16 mg/dL (9-20); Calcium 8.8 mg/dL (8.4-10.2); Hemolysis Index 5
[2022-02-24] MEDS ORDERED: HEPARIN 10,000 UNITS/10 ML VIAL IV SCH (09:00)
[2022-02-24] MEDS: METOPROLOL TARTRATE 50 MG TAB PO SCH ×2 (09:32→21:57)
[2022-02-24] MEDS: GABAPENTIN 300 MG CAP PO SCH ×2 (09:33→21:56)
[2022-02-24] MEDS: LOSARTAN 25 MG TAB PO SCH (09:33)
[2022-02-24] MEDS: TICAGRELOR 90 MG TAB PO SCH ×2 (09:34→21:56)
[2022-02-24] MEDS: FOLIC ACID 1 MG TAB PO SCH (09:34)
[2022-02-24] MEDS: THIAMINE 100 MG TAB PO SCH (09:35)
[2022-02-24] MEDS: MULTIVITAMINS ,THERAPEUTIC TAB PO SCH (09:35)
[2022-02-24] MEDS: hydrOXYzine HCL 25 MG TAB PO SCH ×3 (09:35→21:57)
[2022-02-24] MEDS: ASPIRIN 81 MG TAB CHEW PO SCH (09:43)
[2022-02-24] MEDS ORDERED: HEPARIN 10,000 UNITS/10 ML VIAL IV PRN (10:36)
--- NOTE | 2022-02-24 12:32 | Progress Note ---
Assessment and Plan ST elevation myocardial infarction s/p PCI and stenting Obesity H/O alcohol abuse Heart failure with reduced ejection fraction Hemoconcentration Hyperlipidemia - follow [facility] report - prn supplemental oxygen to keep O2 sats > 90% - continue antiplatelet therapy with IV Heparin - continue lipitor and b-matthew therapy - continue thiamine, folate and MVI's - continue CIWA protocol - bronchodilators (CESAR) with pulm hygiene per RT - avoid nephrotoxins, renally dose all medications - mobility protocols to prevent pressure ulcers - PT/OT as tolerated - prn analgesia per pain score - Wound care per RN/WCT - continue accuchecks with glycemic control per SSI for target blood glucose < 180 mg/dL - tobacco abstinence strongly counseled at the bedside - home oxygen evaluation at discharge - GI & VTE prophylaxis - Flu & pneumovax per protocol - Pulmonary out patient follow up for PFTs and optimization of respiratory status - continue other care per attending / other consultants ... re-evaluate in am & prn Subjective Date of service: 02/24/22 Principal diagnosis: STEMI; Obesity; HFrEF; H/O alcohol abuse; Hyperlipidemia Interval history: Patient is seen today for: STEMI; Obesity; HFrEF; H/O alcohol abuse; Hyperlipidemia Seen and examined at bedside; 24hour events reviewed; nursing and respiratory care staff consulted; no adverse overnight events reported to me; resting in bed; denies acute chest pain; repeat heart cath in am; denies N/V/F/C Objective Vital Signs - 12hr 02/24/22 02/24/22 02/24/22 03:29 04:00 07:54 Temperature 98.2 F 98.4 F Pulse Rate 79 72 74 Pulse Rate [ 82 From Monitor] Respiratory 12 12 14 Rate Blood Pressure 119/77 128/91 O2 Sat by Pulse 96 97 97 Oximetry 02/24/22 02/24/22 08:00 11:24 Temperature Pulse Rate 76 Pulse Rate [ From Monitor] Respiratory 14 Rate Blood Pressure 149/80 O2 Sat by Pulse 96 96 Oximetry Constitutional: no acute distress Eyes: non-icteric ENT: oropharynx moist Neck: supple, no lymphadenopathy, no JVD Effort: mildly labored Ascultation: Bilateral: clear Percussion: Bilateral: not dull Cardiovascular: regular rate and rhythm Gastrointestinal: normoactive bowel sounds, soft, non-tender, non-distended (protuberant) Integumentary: normal Extremities: no cyanosis, no edema, pulses normal, no ischemia or petechiae Neurologic: non-focal exam, pupils equal and round, CN II-XII normal, motor strength normal and Psychiatric: mood appropriate, affect normal CBC and BMP: 02/24/22 04:35 02/24/22 04:35 ABG, PT/INR, D-dimer: PT/INR, D-dimer PT 13.9 Sec. (12.2-14.9) 02/23/22 13:17 INR 0.97 (0.87-1.13) 02/23/22 13:17 Abnormal lab findings: Abnormal Labs 02/22/22 02/22/22 02/22/22 18:14 18:14 20:37 RBC Hgb Hct MCV MCH Plt Count [place] % (Auto) APTT 37.2 H Heparin Anti-Xa Level Carbon Dioxide Total Creatine Kinase 479 H 1389 H CK-MB (CK-2) 4.2 H 103.0 H CK-MB (CK-2) Rel Index 7.4 H Troponin T 1.420 H* D 02/23/22 02/23/22 02/23/22 03:03 03:03 13:17 RBC 6.10 H Hgb 16.6 H 17.2 H Hct 50.0 H 53.7 H MCV 82 L MCH 27 L Plt Count [address] [place] % (Auto) 7.7 H APTT Heparin Anti-Xa Level Carbon Dioxide 21 L Total Creatine Kinase CK-MB (CK-2) CK-MB (CK-2) Rel Index Troponin T 1.850 H* D 02/23/22 02/24/22 02/24/22 19:27 04:35 07:24 RBC 6.26 H Hgb 16.9 H Hct 51.9 H MCV 83 L MCH 27 L Plt Count [address] [facility] % (Auto) APTT Heparin Anti-Xa Level 0.21 L < 0.10 L Carbon Dioxide Total Creatine Kinase CK-MB (CK-2) CK-MB (CK-2) Rel Index Troponin T Allied health notes reviewed: nursing
--- NOTE | 2022-02-24 12:55 | Progress Note ---
Assessment and Plan Patient patient currently chest pain-freePatient is a 46-year-old male came to the ED yesterday for chest pain and found to have STEMI STEMI CAD Cardiomyopathy Obesity Hyperlipidemia Echo 02/22/2022-EF 40 to 45%. Moderate hypokinesis in the anterior septal wall and anterior wall. Mild concentric LVH. Mild diastolic dysfunction is present impaired relaxation pattern. Right ventricular systolic function mildly reduced. Mild tricuspid regurgitation Cardiac cath -revealed left main patent LAD proximal 99% diagonal 1 patent and distal LAD at the apex 100% circumflex patent OM1 OM 2 patent RCA patent borderline normal LV function with elevated left end-diastolic pressure has successful PCI of the proximal to mid LAD across diagonal 1 with a drug-e) Plan: Patient currently chest pain free Patient currently on aspirin, Lipitor 80 mg p.o. nightly, Aggrastat, losartan 12.5 mg p.o. daily, metoprolol 50 mg p.o. twice daily, and Brilinta Continue heparin drip Patient scheduled for cardiac cath tomorrow. N.p.o. after midnight Echo results noted above Discussed plan of care with patient who verbalized understanding and acknowledgment Patient seen in conjunction with Dr. Ledesma who agrees with this plan of care - Patient Problems (1) Acute diastolic (congestive) heart failure Current Visit: Yes Status: Acute (2) Diastolic CHF Current Visit: Yes Status: Acute Qualifiers: Heart failure chronicity: acute Qualified Code(s): I50.31 - Acute diastolic (congestive) heart failure (3) Obesity hypoventilation syndrome Current Visit: Yes Status: Acute (4) STEMI (ST elevation myocardial infarction) Current Visit: Yes Status: Acute Qualifiers: Involved coronary artery: LAD coronary artery Qualified Code(s): I21.02 - ST elevation (STEMI) myocardial infarction involving left anterior descending coronary artery Subjective Date of service: 02/24/22 Principal diagnosis: STEMI; Obesity; HFrEF; H/O alcohol abuse; Hyperlipidemia Interval history: Patient resting in bed in no acute distress Sinus 80s on monitor Objective Vital Signs Temp Pulse Pulse Resp BP Pulse Ox 02/24/22 11:24 76 14 149/80 96 02/24/22 08:00 96 02/24/22 07:54 98.4 F 74 14 128/91 97 02/24/22 04:00 72 82 12 97 02/24/22 03:29 98.2 F 79 12 119/77 96 02/23/22 22:43 98.0 F 86 18 137/88 97 02/23/22 20:31 77 11 L 136/99 99 02/23/22 20:21 77 29 H 136/99 98 02/23/22 20:11 79 22 136/99 98 02/23/22 20:00 97.6 F 98 H 82 12 136/99 97 02/23/22 19:51 72 15 139/93 98 02/23/22 19:41 74 26 H 137/92 99 02/23/22 19:30 76 24 137/92 98 02/23/22 19:21 78 29 H 147/99 97 02/23/22 19:11 78 24 128/92 98 02/23/22 19:00 78 14 128/92 97 02/23/22 18:51 80 10 L 133/82 97 02/23/22 18:41 85 14 120/87 98 02/23/22 18:31 83 17 112/74 98 02/23/22 18:21 83 12 112/74 98 02/23/22 18:11 87 14 112/63 98 02/23/22 18:01 81 15 112/63 92 02/23/22 17:51 80 26 H 130/80 97 02/23/22 17:41 79 20 123/78 97 02/23/22 17:30 75 12 123/78 96 02/23/22 17:21 86 13 139/93 96 02/23/22 17:11 97 H 25 H 134/92 97 02/23/22 17:00 77 11 L 134/92 95 02/23/22 16:51 82 8 L 131/92 97 02/23/22 16:41 78 16 134/93 97 02/23/22 16:36 98.9 F 02/23/22 16:30 79 22 134/93 97 02/23/22 16:21 85 19 119/82 98 02/23/22 16:11 82 10 L 127/97 98 02/23/22 16:00 82 82 12 127/97 97 02/23/22 15:51 81 12 135/105 98 02/23/22 15:41 76 10 L 150/103 99 02/23/22 15:30 74 11 L 150/103 97 02/23/22 15:21 90 13 147/114 98 05/16/22 15:11 93 H 20 137/105 94 02/23/22 15:00 83 15 137/105 98 02/23/22 14:50 79 12 97 02/23/22 14:40 76 23 132/83 97 02/23/22 14:30 75 20 132/83 97 02/23/22 14:20 82 26 H 140/94 96 02/23/22 14:10 86 22 116/72 98 02/23/22 14:00 81 12 116/72 97 02/23/22 13:50 84 18 114/71 98 02/23/22 13:40 82 9 L 123/77 99 02/23/22 13:30 77 21 123/77 97 02/23/22 13:20 78 16 131/78 98 02/23/22 13:10 77 14 131/90 98 02/23/22 13:00 79 12 131/90 98 - Physical Examination HEENT: Positive: PERRL, Mucus Membranes Moist Neck: Positive: neck supple, trachea midline Cardiac: Positive: Reg Rate and Rhythm Lungs: Positive: Normal Breath Sounds Neuro: Positive: Grossly Intact Abdomen: Positive: Soft, Active Bowel Sounds. Negative: Tender, Distended Skin: Positive: Clear Incision: Cardiac Cath Site (no hematoma) Musculoskeletal: No Pain, Normal Range of Motion Extremities: Present: normal. Absent: edema - Labs and Meds Coagulation 02/23/22 Range/Units 13:17 PT 13.9 (12.2-14.9) Sec. INR 0.97 (0.87-1.13) APTT 31.4 (24.2-36.6) Sec. CBC 02/23/22 02/24/22 Range/Units 13:17 04:35 WBC 8.2 (4.5-11.0) K/mm3 RBC 6.26 H (3.65-5.03) M/mm3 Hgb 17.2 H 16.9 H (11.8-15.2) gm/dl Hct 53.7 H 51.9 H (35.5-45.6) % Plt Count 605 H 572 H (140-440) K/mm3 Comprehensive Metabolic Panel 02/24/22 Range/Units 04:35 Sodium 141 (137-145) mmol/L Potassium 4.0 (3.6-5.0) mmol/L Chloride 104.6 (98-107) mmol/L Carbon Dioxide 23 (22-30) mmol/L BUN 16 (9-20) mg/dL Creatinine 1.1 (0.8-1.3) mg/dL Glucose 85 (75-100) mg/dL Calcium 8.8 (8.4-10.2) mg/dL - Imaging and Cardiology Echo: report reviewed Cardiac cath: report reviewed (Cardiac cath revealed left main patent LAD proximal 99% diagonal 1 patent and distal LAD at the apex 100% circumflex patent OM1 OM 2 patent RCA patent borderline normal LV function with elevated left end- diastolic pressure has successful PCI of the proximal to mid LAD across diagonal 1 with a drug-e) - Telemetry EKG Rhythm: Sinus Rhythm - EKG Sinus rhythms and dysrhythmias: sinus rhythm - Allied health notes Allied health notes reviewed: nursing
--- NOTE | 2022-02-24 15:06 | Progress Note ---
Assessment and Plan Assessment and plan: This is a 46-year-old male with obesity, GERD, ONESIMO admitted with a STEMI #STEMI #Ischemic cardiomyopathy #Hyperlipidemia Cardiology consulted; appreciate recs Left heart cath (02/23/2022) revealing occlusion of proximal LAD 99%, distal LAD. PCI placed in the proximal to mid LAD across diagonal. Plan for return to [employer] on 02/25/2022. Continue aspirin 81 mg daily, Lipitor 80 mg nightly, losartan 12.5 mg daily, metoprolol tartrate 50 mg twice daily, and Brilinta Continue heparin drip TTE pending to evaluate EF Continue to monitor #Alcohol dependence - Counseled patient on the importance of ETOH cessation. Assess patient's current ETOH consumption. Assisted with trying to arrange resources for patient to adequately work towards ETOH cessation. Patient expresses understanding. -Continue CIWA protocol, folic acid daily, p.o. thiamine daily, home bupropion, hydroxyzine, and home gabapentin -Time: +15 mins #GERD -Continue home PPI #Thrombocytosis Platelets 572 Continue to monitor #Morbid obesity #Weight loss counseling #Exercise counseling - BMI 36.6 - Counseled patient on the importance of weight loss, incorporating exercise, and dietary changes (lean meats, fresh fruits and vegetables, and water intake). Patient expresses understanding. - Time: +15 min Critical Care Billing: The high probability of a clinically significant, sudden or life threatening deterioration of the [cardiac] system(s) required my full and direct attention, intervention and personal management. The aggregate critical care time was [60] minutes. This time is in addition to time spent performing reported procedures but includes the following: [x] Data Review and interpretation [x] Patient assessment and monitoring of vital signs [x] Documentation [x] Medication orders and management Disposition Plan: Continue medical management Total Time Spent with Patient (Minutes): 45 minutes History Interval history: Patient underwent left heart catheterization on 02/23/2022 with placement of drug-eluting stent and mid to distal LAD. Patient tolerated procedure well. Hospitalist Physical - Constitutional Vitals: Temp Pulse Resp BP Pulse Ox 98.4 F 76 14 149/80 96 02/24/22 07:54 02/24/22 11:24 02/24/22 11:24 02/24/22 11:24 02/24/22 11:24 General appearance: Present: no acute distress, well-nourished, obese - EENT Eyes: Present: PERRL, EOM intact ENT: hearing intact, clear oral mucosa, dentition normal - Neck Neck: Present: supple, normal ROM - Respiratory Respiratory effort: normal Respiratory: bilateral: CTA - Cardiovascular Rhythm: regular Heart Sounds: Present: S1 & S2 - Extremities Extremities: no ischemia, pulses intact, pulses symmetrical, No edema, normal temperature, normal color, Full ROM Peripheral Pulses: within normal limits - Abdominal General gastrointestinal: soft, non-tender, non-distended, normal bowel sounds - Integumentary Integumentary: Present: clear, warm, dry - Psychiatric Psychiatric: appropriate mood/affect, intact judgment & insight, memory intact, cooperative - Neurologic Neurologic: CNII-XII intact, moves all extremities - Allied Health Allied health notes reviewed: nursing HEART Score - HEART Score Troponin: Troponin T 1.850 ng/mL (0.00-0.029) H* D 02/23/22 03:03 Results - Labs CBC & Chem 7: 02/24/22 04:35 02/24/22 04:35 Labs: Laboratory Last Values WBC 8.2 K/mm3 (4.5-11.0) 02/24/22 04:35 RBC 6.26 M/mm3 (3.65-5.03) H 02/24/22 04:35 Hgb 16.9 gm/dl (11.8-15.2) H 02/24/22 04:35 Hct 51.9 % (35.5-45.6) H 02/24/22 04:35 MCV 83 fl (84-94) L 02/24/22 04:35 MCH 27 pg (28-32) L 02/24/22 04:35 MCHC 33 % (32-34) 02/24/22 04:35 RDW 15.2 % (13.2-15.2) 02/24/22 04:35 Plt Count 572 K/mm3 (140-440) H 02/24/22 04:35 Lymph % (Auto) 22.3 % (13.4-35.0) 02/23/22 03:03 [place] % (Auto) 7.7 % (0.0-7.3) H 02/23/22 03:03 Eos % (Auto) 1.9 % (0.0-4.3) 02/23/22 03:03 Baso % (Auto) 0.5 % (0.0-1.8) 02/23/22 03:03 Lymph # (Auto) 1.8 K/mm3 (1.2-5.4) 02/23/22 03:03 [place] # (Auto) 0.6 K/mm3 (0.0-0.8) 02/23/22 03:03 Eos # (Auto) 0.2 K/mm3 (0.0-0.4) 02/23/22 03:03 Baso # (Auto) 0.0 K/mm3 (0.0-0.1) 02/23/22 03:03 Seg Neutrophils % 67.6 % (40.0-70.0) 02/23/22 03:03 Seg Neutrophils # 5.5 K/mm3 (1.8-7.7) 02/23/22 03:03 PT 13.9 Sec. (12.2-14.9) 02/23/22 13:17 INR 0.97 (0.87-1.13) 02/23/22 13:17 APTT 31.4 Sec. (24.2-36.6) 02/23/22 13:17 Heparin Anti-Xa Level < 0.10 U.I./ml (0.3-0.7) L 02/24/22 07:24 Sodium 141 mmol/L (137-145) 02/24/22 04:35 Potassium 4.0 mmol/L (3.6-5.0) 02/24/22 04:35 Chloride 104.6 mmol/L (98-107) 02/24/22 04:35 Carbon Dioxide 23 mmol/L (22-30) 02/24/22 04:35 Anion Gap 17 mmol/L 02/24/22 04:35 BUN 16 mg/dL (9-20) 02/24/22 04:35 Creatinine 1.1 mg/dL (0.8-1.3) 02/24/22 04:35 Estimated GFR > 60 ml/min 02/24/22 04:35 BUN/Creatinine Ratio 15 % 02/24/22 04:35 Glucose 85 mg/dL (75-100) 02/24/22 04:35 POC Glucose 94 mg/dL (70-105) 02/23/22 16:32 Hemoglobin A1c 5.7 % (4-6) 02/24/22 04:35 Calcium 8.8 mg/dL (8.4-10.2) 02/24/22 04:35 Phosphorus 3.90 mg/dL (2.5-4.5) 02/24/22 04:35 Magnesium 2.00 mg/dL (1.7-2.3) 02/24/22 04:35 Total Creatine Kinase 1389 units/L (55-170) H 02/22/22 20:37 CK-MB (CK-2) 103.0 ng/mL (0.0-4.0) H 02/22/22 20:37 CK-MB (CK-2) Rel Index 7.4 (0-4) H 02/22/22 20:37 Troponin T 1.850 ng/mL (0.00-0.029) H* D 02/23/22 03:03 Triglycerides 62 mg/dL (2-149) 02/22/22 20:37 Cholesterol 187 mg/dL (50-199) 02/22/22 20:37 LDL Cholesterol Direct 127 mg/dL (50-130) 02/22/22 20:37 HDL Cholesterol 51 mg/dL (40-59) 02/22/22 20:37 Cholesterol/HDL Ratio 3.66 % 02/22/22 20:37 Blood Type O POSITIVE 02/22/22 18:14 Antibody Screen Negative 02/22/22 18:14 Lopez/IV: Voiding Method Urinal Active Medications - Current Medications Current Medications: Generic Name Dose Route Start Last Admin Trade Name Freq PRN Reason Stop Dose Admin Acetaminophen 650 mg 02/22/22 17:11 Acetaminophen 325 Mg Tab PO Q6H PRN Pain MILD(1-3)/Fever >100.5/DOLL Albuterol 2.5 mg 02/22/22 17:11 Albuterol 2.5 Mg/3 Ml Nebu IH Q3HRT PRN Shortness Of Breath Aspirin 81 mg 02/23/22 10:00 02/24/22 09:43 Aspirin 81 Mg Tab Chew PO 81 mg QDAY JAMAL Administration Atorvastatin Calcium 80 mg 02/22/22 22:00 02/23/22 21:58 Atorvastatin 40 Mg Tab PO 80 mg QHS JAMAL Administration Bupropion HCl 300 mg 02/23/22 15:00 02/23/22 17:08 Bupropion Xl 150 Mg Tab PO 300 mg QDAY JAMAL Administration Famotidine 20 mg 02/23/22 22:00 02/23/22 21:57 Famotidine 20 Mg Tab PO 20 mg QHS JAMAL Administration Folic Acid 1 mg 02/22/22 18:52 02/24/22 09:34 Folic Acid 1 Mg Tab PO 1 mg QDAY JAMAL Administration Gabapentin 300 mg 02/23/22 22:00 02/24/22 09:33 Gabapentin 300 Mg Cap PO 300 mg BID JAMAL Administration Heparin Sodium (Porcine) 4,000 unit 02/24/22 10:36 Heparin 10,000 Units/10 Ml Vial 40 unit/kg (4000 unit) IV Q6H PRN Anti-Xa Assay < 0.1 units/ml Hydroxyzine HCl 25 mg 02/23/22 14:00 02/24/22 09:35 Hydroxyzine Hcl 25 Mg Tab PO 25 mg TID JAMAL Administration Heparin Sodium/Sodium Chloride 25,000 unit in 500 mls @ 20 mls/hr 02/23/22 13:00 02/24/22 08:26 Heparin/ 0.45% Nacl-25,000 Unit/500 Ml IV 1,250 units/hr TITRATE JAMAL 25 mls/hr Titration Protocol 1,000 UNITS/HR Lorazepam 2 mg 02/22/22 18:52 Lorazepam 2 Mg/Ml Vial IV Q1HR PRN CIWA-Ar 8-15 Losartan Potassium 12.5 mg 02/23/22 10:00 02/24/22 09:33 Losartan 25 Mg Tab PO 12.5 mg QDAY JAMAL Administration Metoprolol Tartrate 50 mg 02/22/22 22:00 02/24/22 09:32 Metoprolol Tartrate 50 Mg Tab PO 50 mg BID JAMAL Administration Morphine Sulfate 1 mg 02/22/22 17:11 Morphine 4 Mg/1 Ml Inj IV Q6H PRN Pain , Severe (7-10) Multivitamins 1 each 02/23/22 18:52 02/24/22 09:35 Multivitamins ,Therapeutic Tab PO 1 each QDAY JAMAL Administration Oxycodone/Acetaminophen 1 tab 02/22/22 17:11 02/23/22 22:06 Oxycodone /Acetaminophen 5-325mg Tab PO 1 tab Q6H PRN Administration Pain, Moderate (4-6) Sodium Chloride 10 ml 02/22/22 22:00 02/24/22 09:38 Sodium Chloride 0.9% 10 Ml Flush Syringe IV 10 ml BID JAMAL Administration Sodium Chloride 10 ml 02/22/22 17:11 Sodium Chloride 0.9% 10 Ml Flush Syringe IV PRN PRN LINE FLUSH Thiamine HCl 100 mg 02/23/22 18:52 02/24/22 09:35 Thiamine 100 Mg Tab PO 100 mg QDAY JAMAL Administration Ticagrelor 90 mg 02/22/22 22:00 02/24/22 09:34 Ticagrelor 90 Mg Tab PO 90 mg BID JAMAL Administration
[2022-02-24] MEDS: buPROPion XL 150 MG TAB PO SCH (15:21)
[2022-02-24] MEDS: oxyCODONE /ACETAMINOPHEN 5-325MG TAB PO PRN (15:42)
[2022-02-24] MEDS: FAMOTIDINE 20 MG TAB PO SCH (21:56)
[2022-02-25 03:54] LABS: Basophils # (Auto) 0.1 K/mm3 (0.0-0.1); Basophils % (Auto) 0.8 % (0.0-1.8); Eosinophils # (Auto) 0.2 K/mm3 (0.0-0.4); Eosinophils % (Auto) 2.4 % (0.0-4.3); Hematocrit 51.6 % (35.5-45.6); Hemoglobin 17.3 gm/dl (11.8-15.2); Lymphocytes # (Auto) 2.3 K/mm3 (1.2-5.4); Lymphocytes % (Auto) 28.1 % (13.4-35.0); Mean Corpuscular HGB Conc 33 % (32-34); Mean Corpuscular Volume 82 fl (84-94); Monocytes # (Auto) 0.8 K/mm3 (0.0-0.8); Monocytes % (Auto) 9.1 % (0.0-7.3); Platelet Count 578 K/mm3 (140-440); Red Blood Count 6.33 M/mm3 (3.65-5.03); Red Cell Distribution Width 15.2 % (13.2-15.2)
[2022-02-25 04:05] LABS: INR 0.96 (0.87-1.13)
[2022-02-25 04:09] LABS: BUN/Creatinine Ratio 12; Blood Urea Nitrogen 14 mg/dL (9-20); Hemolysis Index 89
[2022-02-25 04:10] LABS: Partial Thromboplastin Time 79.6 Sec. (24.2-36.6)
[2022-02-25] MEDS: hydrOXYzine HCL 25 MG TAB PO SCH (08:00)
[2022-02-25] MEDS: TICAGRELOR 90 MG TAB PO SCH ×2 (08:43→10:31)
[2022-02-25] MEDS ORDERED: SODIUM CHLORIDE 0.9% 500 ML 500 ML IV SCH (09:00)
[2022-02-25] MEDS ORDERED: SODIUM CHLORIDE 0.9% 500 ML 500 ML ONE ×2 (09:29→10:10)
[2022-02-25] MEDS: ASPIRIN 81 MG TAB CHEW PO SCH (09:39)
--- NOTE | 2022-02-25 10:02 | Electrocardiograph Report ---
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
--- NOTE | 2022-02-25 10:03 | Electrocardiograph Report ---
[facility] Test Date: 2022-02-22 Test Time: 20:26:39 Pat Name: FAROOQ DEMPSEY Department: Room: A476 Gender: M Cna Hha: [place] : 1975 Requested By: MONROE CH Order Number: [id number] Reading MD: Noelle Tate Measurements Intervals [place] Rate: 85 P: 75 [place]: 158 QRS: 235 QRSD: 93 T: 83 QT: 356 QTc: 424 Interpretive Statements Sinus rhythm Right axis deviation Anterolateral wall infarct of indeterminate age Compared to ECG 02/22/2022 16:54:37 Anterolateral wall infarct in evolution Electronically Signed On 02-25-2022 10:03:25 EDT by Noelle Tate
[2022-02-25] MEDS ORDERED: MIDAZOLAM 2 MG/2 ML INJ ONE (10:09)
[2022-02-25] MEDS ORDERED: LIDOCAINE (2%) 20 MG/1 ML VIAL 50 ML MDV INFILTRATI ONE (10:09)
[2022-02-25] MEDS ORDERED: fentaNYL 100 MCG/2 ML INJ ONE (10:09)
[2022-02-25] MEDS ORDERED: VERAPAMIL 5 MG/2 ML INJ ONE (10:09)
[2022-02-25] MEDS ORDERED: HEPARIN 10,000 UNITS/10 ML VIAL ONE (10:09)
[2022-02-25] MEDS ORDERED: HEPARIN/NS 5000 UNIT/500ML 1,000 ML IR ONE (10:09)
[2022-02-25] MEDS ORDERED: NITROGLYCERIN SYRINGE 3 ML ONE (10:09)
[2022-02-25] MEDS: MULTIVITAMINS ,THERAPEUTIC TAB PO SCH (11:17)
[2022-02-25] MEDS: buPROPion XL 150 MG TAB PO SCH (11:17)
[2022-02-25] MEDS: FOLIC ACID 1 MG TAB PO SCH (11:18)
[2022-02-25] MEDS: LOSARTAN 25 MG TAB PO SCH (11:18)
[2022-02-25] MEDS: THIAMINE 100 MG TAB PO SCH (11:18)
[2022-02-25] MEDS: GABAPENTIN 300 MG CAP PO SCH (11:18)
[2022-02-25] MEDS: METOPROLOL TARTRATE 50 MG TAB PO SCH (11:18)
[2022-02-25] MEDS ORDERED: HYDROcodone/ACETAMINOPHEN 5-325 MG TAB PO PRN (11:23)
[2022-02-25] MEDS ORDERED: traMADol 50 MG TAB PO PRN (11:23)
--- NOTE | 2022-02-25 11:47 | Electrocardiograph Report ---
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
--- NOTE | 2022-02-25 13:32 | Progress Note ---
Assessment and Plan ST elevation myocardial infarction s/p PCI and stenting Obesity H/O alcohol abuse Heart failure with reduced ejection fraction Hemoconcentration Hyperlipidemia - follow [facility] report - prn supplemental oxygen to keep O2 sats > 90% - continue antiplatelet therapy with IV Heparin - continue lipitor and b-matthew therapy - continue thiamine, folate and MVI's - continue CIWA protocol - bronchodilators (CESAR) with pulm hygiene per RT - avoid nephrotoxins, renally dose all medications - mobility protocols to prevent pressure ulcers - PT/OT as tolerated - prn analgesia per pain score - Wound care per RN/WCT - continue accuchecks with glycemic control per SSI for target blood glucose < 180 mg/dL - tobacco abstinence strongly counseled at the bedside - home oxygen evaluation at discharge - GI & VTE prophylaxis - Flu & pneumovax per protocol - Pulmonary out patient follow up for PFTs and optimization of respiratory status - continue other care per attending / other consultants ... re-evaluate in am & prn Subjective Date of service: 02/25/22 Principal diagnosis: STEMI; Obesity; HFrEF; H/O alcohol abuse; Hyperlipidemia Interval history: Patient is seen today for: STEMI; Obesity; HFrEF; H/O alcohol abuse; Hyperlipidemia Seen and examined at bedside; 24hour events reviewed; nursing and respiratory care staff consulted; no adverse overnight events reported to me; resting in bed; denies acute chest pain; Objective Vital Signs - 12hr 02/25/22 02/25/22 02/25/22 03:38 07:36 12:06 Temperature 98.2 F 97.2 F L 97.6 F Pulse Rate 73 79 73 Respiratory 12 18 18 Rate Blood Pressure 116/78 120/71 126/81 O2 Sat by Pulse 96 97 94 Oximetry Constitutional: no acute distress Eyes: non-icteric ENT: oropharynx moist Neck: supple, no lymphadenopathy, no JVD Effort: mildly labored Ascultation: Bilateral: clear Percussion: Bilateral: not dull Cardiovascular: regular rate and rhythm Gastrointestinal: normoactive bowel sounds, soft, non-tender, non-distended (protuberant) Integumentary: normal Extremities: no cyanosis, no edema, pulses normal, no ischemia or petechiae Neurologic: non-focal exam, pupils equal and round, CN II-XII normal, motor strength normal and Psychiatric: mood appropriate, affect normal CBC and BMP: 02/25/22 03:39 02/25/22 03:39 ABG, PT/INR, D-dimer: PT/INR, D-dimer PT 13.8 Sec. (12.2-14.9) 02/25/22 03:39 INR 0.96 (0.87-1.13) 02/25/22 03:39 Abnormal lab findings: Abnormal Labs 02/22/22 02/22/22 02/22/22 18:14 18:14 20:37 RBC Hgb Hct MCV MCH Plt Count [place] % (Auto) APTT 37.2 H Heparin Anti-Xa Level Carbon Dioxide Glucose Total Creatine Kinase 479 H 1389 H CK-MB (CK-2) 4.2 H 103.0 H CK-MB (CK-2) Rel Index 7.4 H Troponin T 1.420 H* D 02/23/22 02/23/22 02/23/22 03:03 03:03 13:17 RBC 6.10 H Hgb 16.6 H 17.2 H Hct 50.0 H 53.7 H MCV 82 L MCH 27 L Plt Count 555 H 605 H [place] % (Auto) 7.7 H APTT Heparin Anti-Xa Level Carbon Dioxide 21 L Glucose Total Creatine Kinase CK-MB (CK-2) CK-MB (CK-2) Rel Index Troponin T 1.850 H* D 02/23/22 02/24/22 02/24/22 19:27 04:35 07:24 RBC 6.26 H Hgb 16.9 H Hct 51.9 H MCV 83 L MCH 27 L Plt Count 572 H [place] % (Auto) APTT Heparin Anti-Xa Level 0.21 L < 0.10 L Carbon Dioxide Glucose Total Creatine Kinase CK-MB (CK-2) CK-MB (CK-2) Rel Index Troponin T 02/25/22 02/25/22 02/25/22 03:39 03:39 03:39 RBC 6.33 H Hgb 17.3 H Hct 51.6 H MCV 82 L MCH 27 L Plt Count 578 H [place] % (Auto) 9.1 H APTT 79.6 H* Heparin Anti-Xa Level Carbon Dioxide Glucose 103 H Total Creatine Kinase CK-MB (CK-2) CK-MB (CK-2) Rel Index Troponin T Allied health notes reviewed: nursing
--- NOTE | 2022-02-25 13:40 | Progress Note ---
Assessment and Plan Patient patient currently chest pain-freePatient is a 46-year-old male came to the ED yesterday for chest pain and found to have STEMI STEMI CAD Cardiomyopathy Obesity Hyperlipidemia Echo 02/22/2022-EF 40 to 45%. Moderate hypokinesis in the anterior septal wall and anterior wall. Mild concentric LVH. Mild diastolic dysfunction is present impaired relaxation pattern. Right ventricular systolic function mildly reduced. Mild tricuspid regurgitation Cardiac cath -revealed left main patent LAD proximal 99% diagonal 1 patent and distal LAD at the apex 100% circumflex patent OM1 OM 2 patent RCA patent borderline normal LV function with elevated left end-diastolic pressure has successful PCI of the proximal to mid LAD across diagonal 1 with a drug-e) Plan: Patient currently chest pain free Patient currently on aspirin, Lipitor 80 mg p.o. nightly, Aggrastat, losartan 12.5 mg p.o. daily, metoprolol 50 mg p.o. twice daily, and Brilinta Stop heparin drip For cardiac cath this a.m. No further intervention was needed. See cath report for full detail Discussed with patient the importance of medication compliance especially with compliance with DAPT therapy and explained the risk and complications of noncompliance Discussed plan of care with patient who verbalized understanding and acknowledgment Cardiac status otherwise stable Patient has a follow-up appointment with Dr. Heath, [facility] mechanical specialist, on 04/06/2022 at 10:30 AM in our [place] location. Phone #[phone] Patient seen in conjunction with Dr. Ledesma who agrees with this plan of care - Patient Problems (1) Acute diastolic (congestive) heart failure Current Visit: Yes Status: Acute (2) Diastolic CHF Current Visit: Yes Status: Acute Qualifiers: Heart failure chronicity: acute Qualified Code(s): I50.31 - Acute diastolic (congestive) heart failure (3) Obesity hypoventilation syndrome Current Visit: Yes Status: Acute (4) STEMI (ST elevation myocardial infarction) Current Visit: Yes Status: Acute Qualifiers: Involved coronary artery: LAD coronary artery Qualified Code(s): I21.02 - ST elevation (STEMI) myocardial infarction involving left anterior descending coronary artery Subjective Date of service: 02/25/22 Principal diagnosis: STEMI; Obesity; HFrEF; H/O alcohol abuse; Hyperlipidemia Interval history: Patient for cardiac cath this a.m. Sinus 80s on monitor Objective Vital Signs Temp Pulse Resp BP Pulse Ox 02/25/22 12:06 97.6 F 73 18 126/81 94 02/25/22 07:36 97.2 F L 79 18 120/71 97 02/25/22 03:38 98.2 F 73 12 116/78 96 02/24/22 23:36 97.8 F 75 12 118/78 98 02/24/22 21:57 78 02/24/22 20:23 72 L 02/24/22 20:00 99 02/24/22 19:23 98.2 F 75 13 110/71 97 02/24/22 16:08 75 14 138/87 96 - Physical Examination HEENT: Positive: PERRL, Mucus Membranes Moist Neck: Positive: neck supple, trachea midline Cardiac: Positive: Reg Rate and Rhythm Lungs: Positive: Normal Breath Sounds Neuro: Positive: Grossly Intact Abdomen: Positive: Soft, Active Bowel Sounds. Negative: Tender, Distended Skin: Positive: Clear Incision: Cardiac Cath Site (no hematoma) Musculoskeletal: No Pain, Normal Range of Motion Extremities: Present: normal. Absent: edema - Labs and Meds Coagulation 02/25/22 Range/Units 03:39 PT 13.8 (12.2-14.9) Sec. INR 0.96 (0.87-1.13) APTT 79.6 H* (24.2-36.6) Sec. CBC 02/25/22 Range/Units 03:39 WBC 8.3 (4.5-11.0) K/mm3 RBC 6.33 H (3.65-5.03) M/mm3 Hgb 17.3 H (11.8-15.2) gm/dl Hct 51.6 H (35.5-45.6) % Plt Count 578 H (140-440) K/mm3 Lymph # (Auto) 2.3 (1.2-5.4) K/mm3 [place] # (Auto) 0.8 (0.0-0.8) K/mm3 Eos # (Auto) 0.2 (0.0-0.4) K/mm3 Baso # (Auto) 0.1 (0.0-0.1) K/mm3 Comprehensive Metabolic Panel 02/25/22 Range/Units 03:39 Sodium 138 (137-145) mmol/L Potassium 4.3 (3.6-5.0) mmol/L Chloride 102.1 (98-107) mmol/L Carbon Dioxide 25 (22-30) mmol/L BUN 14 (9-20) mg/dL Creatinine 1.2 (0.8-1.3) mg/dL Glucose 103 H (75-100) mg/dL Calcium 9.0 (8.4-10.2) mg/dL - Imaging and Cardiology Echo: report reviewed Cardiac cath: pending, report reviewed (Cardiac cath revealed left main patent LAD proximal 99% diagonal 1 patent and distal LAD at the apex 100% circumflex patent OM1 OM 2 patent RCA patent borderline normal LV function with elevated left end-diastolic pressure has successful PCI of the proximal to mid LAD across diagonal 1 with a drug-e) - Telemetry EKG Rhythm: Sinus Rhythm - EKG Sinus rhythms and dysrhythmias: sinus rhythm - Allied health notes Allied health notes reviewed: nursing
--- NOTE | 2022-02-25 14:04 | Discharge Summary ---
Providers - Providers Date of Admission: 02/22/22 17:12 Date of discharge: 02/25/22 Attending physician: XOCHILT ISAACS MD 02/22/22 Consult to Cardiac Rehabilitation [CONS] Routine Reason For Exam: post pci 02/22/22 17:12 Consult to Physician [CONS] Routine Comment: Consulting Provider: MONROE CH Physician Instructions: Reason For Exam: stemi 02/23/22 07:26 Consult to Physician [CONS] Routine Comment: Consulting Provider: ORIN VENCES Physician Instructions: Reason For Exam: [facility] Primary care physician: [facility] Hospitalization Reason for admission: STEMI Condition: Critical Pertinent studies: Reviewed. Procedures: Left heart catheterization with PCI placement Hospital course: 46 YO Male with Obesity, ETOH Dependence, GERD, ONESIMO presents to ED for evaluation. Patient reports "I am having chest pain". Patient states that he has experienced chest pain episodes over the past 1 week with persistent and worsening symptoms over the past 1 day. Patient states that his pain is currently 8/10, constant, substernal, sharp in nature, worsened with exertion, relieved with rest, associated with diaphoresis, associated with nausea. Patient transported to [facility] via private vehicle for further care and evaluation of the aforementioned symptoms. The patient was seen and evaluated in the emergency department. All lab and imaging studies reviewed. EKG and lab findings consistent with ST elevation MS. Patient treated with therapeutic anticoagulation and taken urgently to the [facility] for surgical intervention. Cardiology team consulted in ED. patient underwent left heart catheterization on 02/23/2022 revealing occlusion of his proximal LAD at 99% and distal LAD. PCI was placed in the proximal to mid LAD. The patient returned back to the [facility] on 02/25/2022 for further evaluation. Patient will continue with medical management, and he will be discharged on aspirin 81 mg daily, Lipitor 80 mg nightly, losartan 12.5 mg daily, metoprolol tartrate 50 mg twice daily, and Plavix 75 mg daily. Patient was counseled at length about the importance of alcohol cessation, and the patient expresses understanding. Patient is medically clear for discharge. Disposition: 01 HOME / SELF CARE / HOMELESS Final Discharge Diagnosis (Prints w/discharge instructions): STEMI, ischemic cardiomyopathy, hyperlipidemia, alcohol dependence, GERD, thrombocytosis, morbid obesity. Time spent for discharge: 45 min Core Measure Documentation - Palliative Care Palliative Care/ Comfort Measures: Not Applicable - Core Measures Any of the following diagnoses?: acute MS - Acute MS Discharge Requirements Aspirin at discharge: Yes GERA/ARB for LVSD if EF <40%: Yes Beta matthew at discharge: Yes Statin for LDL = or >100 mg/dl on DC: Yes Exam - Constitutional Vitals: Temp Pulse Resp BP Pulse Ox 97.6 F 73 18 126/81 94 02/25/22 12:06 02/25/22 12:06 02/25/22 12:06 02/25/22 12:06 02/25/22 12:06 General appearance: Present: no acute distress, well-nourished, obese - EENT Eyes: Present: PERRL, EOM intact ENT: hearing intact, clear oral mucosa, dentition normal - Neck Neck: Present: supple, normal ROM - Respiratory Respiratory effort: normal Respiratory: bilateral: CTA - Cardiovascular Rhythm: regular Heart Sounds: Present: S1 & S2 - Extremities Extremities: no ischemia, pulses intact, pulses symmetrical, No edema, normal temperature, normal color, Full ROM Peripheral Pulses: within normal limits - Abdominal General gastrointestinal: Present: soft, non-tender, non-distended, normal bowel sounds Male genitourinary: Present: deferred - Rectal Rectal Exam: deferred - Integumentary Integumentary: Present: clear, warm, dry - Musculoskeletal Musculoskeletal: strength equal bilaterally - Psychiatric Psychiatric: appropriate mood/affect, intact judgment & insight, memory intact, cooperative - Neurologic Neurologic: CNII-XII intact, moves all extremities - Allied Health Allied health notes reviewed: nursing Plan Activity: advance as tolerated Diet: low salt Additional Instructions: 46 YO Male with Obesity, ETOH Dependence, GERD, ONESIMO presents to ED for evaluation. Patient reports "I am having chest pain". Patient states that he has experienced chest pain episodes over the past 1 week with persistent and worsening symptoms over the past 1 day. Patient states that his pain is currently 8/10, constant, substernal, sharp in nature, worsened with exertion, relieved with rest, associated with diaphoresis, associated with nausea. Patient transported to [facility] via private vehicle for further care and evaluation of the aforementioned symptoms. The patient was seen and evaluated in the emergency department. All lab and imaging studies reviewed. EKG and lab findings consistent with ST elevation MS. Patient treated with therapeutic anticoagulation and taken urgently to the [facility] for surgical intervention. Cardiology team consulted in ED. patient underwent left heart catheterization on 02/23/2022 revealing occlusion of his proximal LAD at 99% and distal LAD. PCI was placed in the proximal to mid LAD. The patient returned back to the [facility] on 02/25/2022 for further evaluation. Patient will continue with medical management, and he will be discharged on aspirin 81 mg daily, Lipitor 80 mg nightly, losartan 12.5 mg daily, metoprolol tartrate 50 mg twice daily, and Plavix 75 mg daily. Patient was counseled at length about the importance of alcohol cessation, and the patient expresses understanding. Patient is medically clear for discharge. Care Plan Goals: Patient is medically clear for discharge. Assessment: 46 YO Male with Obesity, ETOH Dependence, GERD, ONESIMO presents to ED for evaluation. Patient reports "I am having chest pain". Patient states that he has experienced chest pain episodes over the past 1 week with persistent and worsening symptoms over the past 1 day. Patient states that his pain is currently 8/10, constant, substernal, sharp in nature, worsened with exertion, relieved with rest, associated with diaphoresis, associated with nausea. Patient transported to [facility] via private vehicle for further care and evaluation of the aforementioned symptoms. The patient was seen and evaluated in the emergency department. All lab and imaging studies reviewed. EKG and lab findings consistent with ST elevation MS. Patient treated with therapeutic anticoagulation and taken urgently to the [facility] for surgical intervention. Cardiology team consulted in ED. patient underwent left heart catheterization on 02/23/2022 revealing occlusion of his proximal LAD at 99% and distal LAD. PCI was placed in the proximal to mid LAD. The patient returned back to the [facility] on 02/25/2022 for further evaluation. Patient will continue with medical management, and he will be discharged on aspirin 81 mg daily, Lipitor 80 mg nightly, losartan 12.5 mg daily, metoprolol tartrate 50 mg twice daily, and Plavix 75 mg daily. Patient was counseled at length about the importance of alcohol cessation, and the patient expresses understanding. Patient is medically clear for discharge. Follow up with: ENRIQUE BERMAN MD [Primary Care Provider] - 7 Days MONROE CH MD [Staff Physician] - 04/06/22 10:30 am ( Phone #[phone]) Forms: Work/School Release Form Prescriptions: AtorvaSTATin [Lipitor] 80 mg PO QHS #30 tablet Aspirin [Aspirin BABY CHEW TAB] 81 mg PO QDAY #30 tab.chew Losartan [Cozaar] 12.5 mg PO QDAY #30 tablet Gabapentin 300 mg PO BID #60 capsule Metoprolol [Lopressor TAB] 50 mg PO BID #60 tablet buPROPion XL [Wellbutrin XL] 300 mg PO QDAY #60 tablet
[2022-02-25 17:25] VITALS: BP 125/85
== END 2022-02-25 17:40 | disposition home or self-care (01) | DRG 246 ==
LOC: ED 16:38 → CC1 17:12 → 4A 02-23 21:30
PROVIDERS: ADMIT Internal Medicine; ATTEND Student in an Organized Health Care Education/Training Program
PROC: 027034Z Dilation of Coronary Artery, One Artery with Drug-eluting Intraluminal Device, Percutaneous Approach (ICD-10-PCS; principal; 2022-02-22)
PROC: 02C03ZZ Extirpation of Matter from Coronary Artery, One Artery, Percutaneous Approach (ICD-10-PCS; 2022-02-22)
PROC: 4A023N7 Measurement of Cardiac Sampling and Pressure, Left Heart, Percutaneous Approach (ICD-10-PCS; 2022-02-22)
PROC: B2111ZZ Fluoroscopy of Multiple Coronary Arteries using Low Osmolar Contrast (ICD-10-PCS; 2022-02-22)
PROC: B2151ZZ Fluoroscopy of Left Heart using Low Osmolar Contrast (ICD-10-PCS; 2022-02-22)
DX: I21.02 ST elevation (STEMI) myocardial infarction involving left anterior descending coronary artery (principal); I50.31 Acute diastolic (congestive) heart failure; I25.10 Atherosclerotic heart disease of native coronary artery without angina pectoris; E66.2 Morbid (severe) obesity with alveolar hypoventilation; K21.9 Gastro-esophageal reflux disease without esophagitis; E78.5 Hyperlipidemia, unspecified; Z20.822 Contact with and (suspected) exposure to COVID-19; F10.20 Alcohol dependence, uncomplicated; D75.839 Thrombocytosis, unspecified; I25.5 Ischemic cardiomyopathy; Z83.3 Family history of diabetes mellitus; Z82.49 Family history of ischemic heart disease and other diseases of the circulatory system
CPT/HCPCS: 36415; 71045; 80048; 80061; 82550; 82553; 82962; 83036; 83735; 84100; 84484; 85014; 85018; 85025; 85027; 85049; 85520; 85610; 85730; 86850; 86900; 86901; 92941; 92973; 92978; 93005; 93306; 93458; G0378; J1815; J3490; Q0177; C1725; C1753; C1769; C1874; C1887; C1894; C8929; C9606; J0153; J1644; J2250; J2270; J2405; J3010; J3246; J7030; J7040; Q9967